=== PATIENT | male | born 1955 | race Caucasian/White ===

== ENCOUNTER → 2022-05-30 11:36 | Outpatient (BNVA) | payer MEDICARE, OTHER, SELFPAY | PROVIDERS: PCP Family Medicine; Visit Provider Psychiatry & Neurology Psychiatry | DX: F34.1 Dysthymic disorder (principal); F98.8 Other specified behavioral and emotional disorders with onset usually occurring in childhood and adolescence; I10 Essential (primary) hypertension | CPT/HCPCS: 99212 ==

== ENCOUNTER → 2022-08-28 15:30 | Outpatient (BNVA) | payer MEDICARE, OTHER, SELFPAY | PROVIDERS: PCP Family Medicine; Visit Provider Psychiatry & Neurology Psychiatry | DX: F34.1 Dysthymic disorder (principal); F98.8 Other specified behavioral and emotional disorders with onset usually occurring in childhood and adolescence; I10 Essential (primary) hypertension | CPT/HCPCS: 99212 ==

== ENCOUNTER 2022-12-13 13:18 | Outpatient (AMB) | payer MEDICARE, OTHER, SELFPAY ==
--- NOTE | 2022-12-13 14:10 | MHC.OFFVISPS ---
Intake Intake Visit Reasons: depression Allergies No Known Allergies Allergy (Verified 05/30/22 11:58) Medication List - Last Reconciled 12/13/22 by Gwyn Mane MD atenolol 25 mg PO BID dextroamphetamine sulfate 5 mg PO TID duloxetine 30 mg PO DAILY glyburide 2.5 mg PO QAM lisinopril 40 mg PO DAILY metformin 1,000 mg PO DIRECTED simvastatin 40 mg PO QPM HPI- Psychiatric Chief Complaint: depression HPI Narrative: Generally stable on current regimen chronic [place] dysphoria tendency to ruminate with some degree of anxiety duloxitine dexedrine has been having some difficulties emotionally PHQ-9 minimal does tend to chronically worry Past Psychiatric History: Pt with hx of ADD and dysthymia has failed multiple antidep trials feels best on dexedrine and duloxitine Mental Status Exam Mental Status Exam Narrative: Mental Status Exam Narrative: Appearance: Casually dressed Behavior: Cooperative appropriate psychomotor: Within normal limits Speech: Normal volume and prosody Thought proccess logical and goal-directed Thought content: Future oriented some worries Mood: Euthymic Affect: Appropriate to mood some anxiety SI:denies HI:denies VH/AH:none Delusions: None Insight/judgment: Good insight and judgment Memory/cog: Intact Assessment and Plan Assessment & Plan (1) Dysthymia: Status: Acute Code(s): F34.1 - Dysthymic disorder (2) ADD (attention deficit disorder) without hyperactivity: Status: Acute Code(s): F98.8 - Other specified behavioral and emotional disorders with onset usually occurring in childhood and adolescence Plan Patient generally stable continue present regimen has some limitations of life satisfaction had are chronic but generally content Medications: Refilled duloxetine 30 mg PO DAILY 30 caps 2RF dextroamphetamine sulfate Partial Fill upon patient request. 5 mg PO TID 90 tabs 0RF Counseling and coordination of Care Details-Self Mgmt counseling: Issues related to some degree of life dissatisfaction Details: I spent [30] minutes reviewing the record, seeing the patient and documenting in the medical record. Counseling provided to the patient/caregiver as outlined below. Addressed patient/caregiver concerns regarding current medication regime including effective adherence. Addressed patient/caregiver concerns regarding diagnosis and prognosis including accuracy of diagnosis, prognosis over time, impact of diagnosis. Addressed patient/caregiver concerns regarding impact of recent stressors. [facility] Medical History (Updated 05/30/22 @ 12:16 by Gwyn Mane MD) ADD (attention deficit disorder) without hyperactivity Dysthymia Hypercholesteremia Hypertension Social History: pt x 2 1 b 2 girls retired college grad 2 sibling 1 b pgm [facility] nephew add Substance History: na Trauma History: na Coding Level of Care Code Est Pt Level 4 (01619) Diagnoses Dysthymia F34.1 ADD (attention deficit disorder) without hyperactivity F98.8
== END 2022-12-13 17:31 | disposition home or self-care (01) ==
LOC: HO.HOP 13:18
PROVIDERS: PCP Family Medicine; Visit Provider Psychiatry & Neurology Psychiatry
DX: F34.1 Dysthymic disorder (principal); F98.8 Other specified behavioral and emotional disorders with onset usually occurring in childhood and adolescence
CPT/HCPCS: 99214

== ENCOUNTER → 2022-12-13 13:18 | Outpatient (BNVA) | payer MEDICARE, OTHER, SELFPAY | PROVIDERS: PCP Family Medicine; Visit Provider Psychiatry & Neurology Psychiatry | DX: F34.1 Dysthymic disorder (principal); F98.8 Other specified behavioral and emotional disorders with onset usually occurring in childhood and adolescence | CPT/HCPCS: 99212 ==

== ENCOUNTER 2023-04-10 15:06 | Outpatient (AMB) | payer MEDICARE, OTHER, SELFPAY ==
--- NOTE | 2023-04-10 15:21 | MHC.OFFVISPS ---
Intake Intake Visit Reasons: Depression Allergies No Known Allergies Allergy (Verified 05/30/22 11:58) HPI- Psychiatric Chief Complaint: Depression HPI Narrative: Pt is a 67 yo male hx of depression ADD having some difficulties with situation with his daughter wants to be part of grandchildrens life remains on cymbalta c/o mild memory difficulty at times sleep ok no medical changes Past Psychiatric History: Pt with hx of ADD and dysthymia has failed multiple antidep trials feels best on dexedrine and duloxitine Mental Status Exam Mental Status Exam Narrative: Mental Status Exam Narrative: Appearance: Casually dressed Behavior: Cooperative appropriate psychomotor: Within normal limits Speech: Normal volume and prosody Thought proccess logical and goal-directed Thought content: Future oriented some worries Mood: Euthymic Affect: Appropriate to mood some anxiety SI:denies HI:denies VH/AH:none Delusions: None Insight/judgment: Good insight and judgment Memory/cog: Intact Assessment and Plan Assessment & Plan (1) Dysthymia: Status: Acute Code(s): F34.1 - Dysthymic disorder (2) Word finding difficulty: Status: Acute Code(s): R47.89 - Other speech disturbances (3) ADD (attention deficit disorder) without hyperactivity: Status: Acute Code(s): F98.8 - Other specified behavioral and emotional disorders with onset usually occurring in childhood and adolescence Plan Is continue plan of care some degree of chronic apathy check testosterone B12 folate TSH otherwise continue plan of care Medications: Refilled dextroamphetamine sulfate Partial Fill upon patient request. 5 mg PO TID 90 tabs 0RF Orders: Orders Vitamin B12 and Folate 04/10/23 F34.1 - Dysthymic disorder, R53.83 - Other fatigue, R47.89 - Other speech disturbances Testosterone, Free/Total 04/10/23 F34.1 - Dysthymic disorder, R53.83 - Other fatigue, R47.89 - Other speech disturbances TSH reflex Free T4 04/10/23 F34.1 - Dysthymic disorder, R53.83 - Other fatigue, R47.89 - Other speech disturbances Counseling and coordination of Care Pt. Self Management counseling: Behavior activation Diagnosis and Prognosis Counseling: Accuracy of diagnosis, Impact of diagnosis on life functions and Adequacy of current interventions Details: I spent [34] minutes reviewing the record, seeing the patient and documenting in the medical record. Counseling provided to the patient/caregiver as outlined below. Addressed patient/caregiver concerns regarding current medication regime including effective adherence. Addressed patient/caregiver concerns regarding diagnosis and prognosis including accuracy of diagnosis, prognosis over time, impact of diagnosis. Addressed patient/caregiver concerns regarding impact of recent stressors. [facility] Medical History (Updated 04/10/23 @ 15:44 by Gwyn Mane MD) Dysthymia ADD (attention deficit disorder) without hyperactivity Hypercholesteremia Hypertension Social History: pt x 2 1 b 2 girls retired college grad 2 sibling 1 b pgm [facility] nephew add Substance History: na Trauma History: na Coding Level of Care Code Est Pt Level 4 (88048) Diagnoses Dysthymia F34.1 Word finding difficulty R47.89 ADD (attention deficit disorder) without hyperactivity F98.8
== END 2023-04-10 16:24 | disposition home or self-care (01) ==
LOC: HO.HOP 15:06
PROVIDERS: PCP Family Medicine; Visit Provider Psychiatry & Neurology Psychiatry
DX: F34.1 Dysthymic disorder (principal); R47.89 Other speech disturbances; F98.8 Other specified behavioral and emotional disorders with onset usually occurring in childhood and adolescence
CPT/HCPCS: 99214

== ENCOUNTER → 2023-04-10 15:06 | Outpatient (BNVA) | payer MEDICARE, OTHER, SELFPAY | PROVIDERS: PCP Family Medicine; Visit Provider Psychiatry & Neurology Psychiatry | DX: F34.1 Dysthymic disorder (principal); F98.8 Other specified behavioral and emotional disorders with onset usually occurring in childhood and adolescence; R47.89 Other speech disturbances | CPT/HCPCS: 99212 ==

== ENCOUNTER 2023-07-18 12:38 | Outpatient (AMB) | payer MEDICARE, OTHER, SELFPAY ==
--- NOTE | 2023-07-18 12:47 | MHC.OFFVISPS ---
Intake Intake Visit Reasons: depression Allergies No Known Allergies Allergy (Verified 05/30/22 11:58) HPI- Psychiatric Chief Complaint: depression HPI Narrative: Pt with some periods of low energy discussed use of light box c/o some occ word finding problems names not narrative memory pt generally doing well on low dose cymbalta dexedrine Past Psychiatric History: Pt with hx of ADD and dysthymia has failed multiple antidep trials feels best on dexedrine and duloxitine Mental Status Exam Mental Status Exam Narrative: Mental Status Exam Narrative: Appearance: Casually dressed Behavior: Cooperative appropriate psychomotor: Within normal limits Speech: Normal volume and prosody Thought proccess logical and goal-directed Thought content: Future oriented some worries Mood: Euthymic Affect: Appropriate to mood some anxiety SI:denies HI:denies VH/AH:none Delusions: None Insight/judgment: Good insight and judgment Memory/cog: alert basic memory intact Assessment and Plan Assessment & Plan (1) ADD (attention deficit disorder) without hyperactivity: Status: Acute Code(s): F98.8 - Other specified behavioral and emotional disorders with onset usually occurring in childhood and adolescence (2) Hypertension: Status: Acute Code(s): I10 - Essential (primary) hypertension (3) Dysthymia: Status: Acute Code(s): F34.1 - Dysthymic disorder (4) Word finding difficulty: Status: Acute Code(s): R47.89 - Other speech disturbances Plan pt generally stable no clear atypical cognitive issues discussed cognitive brain health discussed different strategies possible labs need to have well controlled blood sugar htn lipids need for regular exercise pt offered labs including b12 folate tsh rpr lyme pt states he sees pcp consider above next visit Counseling and coordination of Care Pt. Self Management counseling: Med illness tx adherence Medication management counseling: Effectiveness and Side effects Details: I spent [30] minutes reviewing the record, seeing the patient and documenting in the medical record. Counseling provided to the patient/caregiver as outlined below. Addressed patient/caregiver concerns regarding current medication regime including effective adherence. Addressed patient/caregiver concerns regarding diagnosis and prognosis including accuracy of diagnosis, prognosis over time, impact of diagnosis. Addressed patient/caregiver concerns regarding impact of recent stressors. [facility] Medical History (Updated 04/10/23 @ 15:44 by Gwyn Mane MD) Dysthymia ADD (attention deficit disorder) without hyperactivity Hypercholesteremia Hypertension Social History: pt x 2 1 b 2 girls retired college grad 2 sibling 1 b [facility] nephew add Substance History: na Trauma History: na Coding Level of Care Code Est Pt Level 4 (40706) Diagnoses ADD (attention deficit disorder) without hyperactivity F98.8 Hypertension I10 Dysthymia F34.1 Word finding difficulty R47.89
== END 2023-07-18 13:05 | disposition home or self-care (01) ==
LOC: HO.HOP 12:38
PROVIDERS: PCP Family Medicine; Visit Provider Psychiatry & Neurology Psychiatry
DX: F98.8 Other specified behavioral and emotional disorders with onset usually occurring in childhood and adolescence (principal); I10 Essential (primary) hypertension; F34.1 Dysthymic disorder; R47.89 Other speech disturbances
CPT/HCPCS: 99214

== ENCOUNTER → 2023-07-18 12:38 | Outpatient (BNVA) | payer MEDICARE, OTHER, SELFPAY | PROVIDERS: PCP Family Medicine; Visit Provider Psychiatry & Neurology Psychiatry | DX: F98.8 Other specified behavioral and emotional disorders with onset usually occurring in childhood and adolescence (principal); F34.1 Dysthymic disorder; I10 Essential (primary) hypertension; R47.89 Other speech disturbances | CPT/HCPCS: 99212 ==

== ENCOUNTER 2023-11-16 12:30 | Outpatient (AMB) | payer MEDICARE, OTHER, SELFPAY ==
--- NOTE | 2023-11-16 12:48 | A.OFFPSYCH_ITS ---
Intake Intake Visit Reasons: depression Allergies No Known Allergies Allergy (Verified 05/30/22 11:58) HPI- Psychiatric Chief Complaint: depression HPI Narrative: Patient seen psychiatric follow-up patient without new medical difficulties. Patient with chronic minimal periods of dysthymia can be a motivational continues to find Dexedrine up to 5 t.i.d. helpful without palpitations increased anxiety or appetite difficulties. Continues on duloxetine which has been helpful in dealing with chronic anxiety and dysphoria . PHQ-9 reviewed Past Psychiatric History: Pt with hx of ADD and dysthymia has failed multiple antidep trials feels best on dexedrine and duloxitine Mental Status Exam Mental Status Exam Narrative: Mental Status Exam Narrative: Appearance: Casually dressed Behavior: Cooperative appropriate psychomotor: Within normal limits Speech: Normal volume and prosody Thought proccess logical and goal-directed Thought content: Future oriented some worries Mood: Euthymic Affect: Appropriate to mood some anxiety SI:denies HI:denies VH/AH:none Delusions: None Insight/judgment: Good insight and judgment Memory/cog: alert basic memory intact Assessment and Plan Assessment & Plan (1) ADD (attention deficit disorder) without hyperactivity: Status: Acute Code(s): F98.8 - Other specified behavioral and emotional disorders with onset usually occurring in childhood and adolescence (2) Generalized anxiety disorder: Status: Acute Code(s): F41.1 - Generalized anxiety disorder (3) Dysthymia: Status: Acute Code(s): F34.1 - Dysthymic disorder Plan cont plan of care encourage exercise sleep habits no change indicated this time does tend to ruminate Medications: Refilled dextroamphetamine sulfate Partial Fill upon patient request. 5 mg PO TID 90 tabs 0RF duloxetine 30 mg PO DAILY 30 caps 4RF dextroamphetamine sulfate Partial Fill upon patient request. 5 mg PO TID 90 tabs 0RF Counseling and coordination of Care Pt. Self Management counseling: Breathing, Exercise and Behavior activation Details-Self Mgmt counseling: Issues related to family concerns Medication management counseling: Effectiveness Diagnosis and Prognosis Counseling: Adequacy of current interventions Details: I spent [38] minutes reviewing the record, seeing the patient and documenting in the medical record. Counseling provided to the patient/caregiver as outlined below. Addressed patient/caregiver concerns regarding current medication regime including effective adherence. Addressed patient/caregiver concerns regarding diagnosis and prognosis including accuracy of diagnosis, prognosis over time, impact of diagnosis. Addressed patient/caregiver concerns regarding impact of recent stressors. [facility] Medical History (Updated 11/19/23 @ 09:39 by Gwyn Mane MD) Generalized anxiety disorder Dysthymia ADD (attention deficit disorder) without hyperactivity Hypercholesteremia Hypertension Social History: pt x 2 1 b 2 girls retired college grad 2 sibling 1 b 1 son in residency pgm [facility] nephew add Substance History: na Trauma History: na Coding Level of Care Code Est Pt Level 3 (61239) Therapy 30m w/E&M (68181) Diagnoses ADD (attention deficit disorder) without hyperactivity F98.8 Generalized anxiety disorder F41.1 Dysthymia F34.1
== END 2023-11-16 15:37 | disposition home or self-care (01) ==
LOC: HO.HOP 12:30
PROVIDERS: PCP Family Medicine; Visit Provider Psychiatry & Neurology Psychiatry
DX: F98.8 Other specified behavioral and emotional disorders with onset usually occurring in childhood and adolescence (principal); F41.1 Generalized anxiety disorder; F34.1 Dysthymic disorder
CPT/HCPCS: 90833; 99213

== ENCOUNTER → 2023-11-16 12:30 | Outpatient (BNVA) | payer MEDICARE, OTHER, SELFPAY | PROVIDERS: PCP Family Medicine; Visit Provider Psychiatry & Neurology Psychiatry | DX: F98.8 Other specified behavioral and emotional disorders with onset usually occurring in childhood and adolescence (principal); F41.1 Generalized anxiety disorder; F34.1 Dysthymic disorder; Z79.899 Other long term (current) drug therapy | CPT/HCPCS: 99212 ==

== ENCOUNTER 2024-02-26 14:01 | Outpatient (AMB) | payer MEDICARE, OTHER, SELFPAY ==
--- NOTE | 2024-02-26 14:14 | A.OFFPSYCH_ITS ---
Intake Intake Visit Reasons: depression Allergies No Known Allergies Allergy (Verified 05/30/22 11:58) Medication List - Last Reconciled 02/26/24 by Gwyn Mane MD atenolol 25 mg PO BID dextroamphetamine sulfate 5 mg PO TID duloxetine 30 mg PO DAILY glyburide 2.5 mg PO QAM lisinopril 40 mg PO DAILY metformin 1,000 mg PO DIRECTED simvastatin 40 mg PO QPM HPI- Psychiatric Chief Complaint: depression HPI Narrative: Pt generally doing ok some apathy amotivational at times no c/o side effects patient generally doing okay low-dose Cymbalta low-dose Dexedrine no new medical problems patient's son involved in medicine. Past Psychiatric History: Pt with hx of ADD and dysthymia has failed multiple antidep trials feels best on dexedrine and duloxitine Mental Status Exam Mental Status Exam Narrative: Mental Status Exam Narrative: Appearance: Casually dressed Behavior: Cooperative appropriate psychomotor: Within normal limits Speech: Normal volume and prosody Thought proccess logical and goal-directed Thought content: Future oriented some worries Mood: Euthymic Affect: Appropriate to mood some anxiety SI:denies HI:denies VH/AH:none Delusions: None Insight/judgment: Good insight and judgment Memory/cog: alert basic memory intact Assessment and Plan Assessment & Plan (1) Generalized anxiety disorder: Status: Acute Code(s): F41.1 - Generalized anxiety disorder (2) ADD (attention deficit disorder) without hyperactivity: Status: Acute Code(s): F98.8 - Other specified behavioral and emotional disorders with onset usually occurring in childhood and adolescence (3) Dysthymia: Status: Acute Code(s): F34.1 - Dysthymic disorder Plan cont plan of care encourage exercise sleep habits no change indicated this time does tend to ruminate Medications: Refilled duloxetine 30 mg PO DAILY 90 caps 1RF Orders: Orders ECG 12 lead EKG 02/26/24 F98.8 - Other specified behavioral and emotional disorders with onset usually occurring in childhood and adolescence, I10 - Essential (primary) hypertension Counseling and coordination of Care Pt. Self Management counseling: Breathing, Exercise and Behavior activation Details-Self Mgmt counseling: Issues related to family concerns Medication management counseling: Effectiveness Diagnosis and Prognosis Counseling: Adequacy of current interventions Details: I spent [30] minutes reviewing the record, seeing the patient and documenting in the medical record. Counseling provided to the patient/caregiver as outlined below. Addressed patient/caregiver concerns regarding current medication regime including effective adherence. Addressed patient/caregiver concerns regarding diagnosis and prognosis including accuracy of diagnosis, prognosis over time, impact of diagnosis. Addressed patient/caregiver concerns regarding impact of recent stressors. [facility] Medical History (Updated 11/19/23 @ 09:39 by Gwyn Mane MD) Generalized anxiety disorder Dysthymia ADD (attention deficit disorder) without hyperactivity Hypercholesteremia Hypertension Social History: pt x 2 1 b 2 girls retired college grad 2 sibling 1 b 1 son in residency pgm [facility] nephew add Substance History: na Trauma History: na Coding Level of Care Code Est Pt Level 4 (12547) Diagnoses Generalized anxiety disorder F41.1 ADD (attention deficit disorder) without hyperactivity F98.8 Dysthymia F34.1
== END 2024-02-26 15:24 | disposition home or self-care (01) ==
PROVIDERS: PCP Family Medicine; Visit Provider Psychiatry & Neurology Psychiatry
DX: F41.1 Generalized anxiety disorder (principal); F98.8 Other specified behavioral and emotional disorders with onset usually occurring in childhood and adolescence; F34.1 Dysthymic disorder
CPT/HCPCS: 99214

== ENCOUNTER → 2024-02-26 14:01 | Outpatient (REF) | payer MEDICARE, OTHER, SELFPAY ==
--- NOTE | 2024-02-26 15:18 | ECG_ITS ---
Test Reason : behavior and emotional disorders Blood Pressure : / mmHG Vent. Rate : 071 BPM Atrial Rate : 071 BPM P-R Int : 154 ms QRS Dur : 092 ms QT Int : 390 ms P-R-T Axes : 057 -22 -13 degrees QTc Int : 423 ms Normal sinus rhythm Normal ECG When compared with ECG of 14-SEP-2004 06:40, No significant change was found Referred By: Gwyn Mane Electronically Signed By:ROSANGELA MUJICA
== END ==
LOC: HO.CARD 14:01
PROVIDERS: PCP Family Medicine; Visit Provider Psychiatry & Neurology Psychiatry
DX: F98.8 Other specified behavioral and emotional disorders with onset usually occurring in childhood and adolescence (principal); I10 Essential (primary) hypertension
CPT/HCPCS: 93005; 99212

== ENCOUNTER 2024-06-03 10:30 | Outpatient (AMB) | payer MEDICARE, OTHER, SELFPAY ==
--- OUTSIDE RECORDS SUMMARY | 2024-06-03 10:36 | XMS_ITS ---
Author Organization [facility] Address [address] [place] [address] Care Team Providers Care Outreach Manager Name Role Phone Tony Roberts MD Primary Care Provider Unavailab Pankaj Yin Unavailable [phone] Allergies No Known Allergies REASON FOR VISIT At Risk Footcare, Painful Nail(s) aggravated by shoes and causing difficulty standing/walking., Open sore - Toe, Toe Irritation Medications Medication SIG (Take, Route, Frequency, Duration) Notes Start Date End Date Status Atenolol 25 MG Oral for 90 Days Active Cephalexin 500 MG Oral for 7 Days Not-Taking Lisinopril 40 MG TAKE 1 TABLET BY MARII TH EVERY DAY DIRECTED Oral for 90 Days Active Simvastatin 40 MG TAKE 1 TABLET BY MARII TH EVERY EVENING Oral for 90 Days Active glyBURIDE 2.5 MG TAKE 1 TABLET BY MARII TH EVERY MORNING Oral for 90 Days Active DULoxetine HCl 30 MG TAKE 1 CAPSULE BY MOUTH DAILY Oral for 30 Days Active metFORMIN HCl 500 MG Oral for 90 Days Active Zolpidem Tartrate 10 MG TAKE 1 TABLET BY MOUTH AT BEDTIME NEEDED Oral for 30 Days PRN Active Dextroamphetamine Sulfate 5 MG TAKE 1 TABLET BY MOUTH THREE TIMES DAILY Oral for 30 Days Active Extra Depth Orthopedic Shoes (1 Pair) with Customized Heat Molded Multidensity Innersoles (3 Pair) as directed Dx: NIDDM (E11.9), Hammertoe Foot Deformity (M20.41,M20.42), Preulcerative Skin Lesion(s) (L85.1) 02/05/2024 Active Social History Tobacco Use: Social History Observation Description Date Details (start date - stop date) Never Smoker NA - NA Tobacco Use/Smoking Question Answer Notes Are you a: nonsmoker Additional Findings: Tobacco Non-User Current no n-smoker Tobacco use other than smoking: Question Answer Notes Are you an other tobacco user? No Problems Problem Type SNOMED Code ICD Code Onset Dates Problem Status W/U Status Risk Notes Problem Acquired hammer toe of right foot (1626206167183 105) Other hammer toe(s) (acquired), right foot (M20.41) Active confirmed Problem Acquired hammer toe of left foot (6531056552534 103) Other hammer toe(s) (acquired), left foot (M20.42) Active confirmed Vital Signs Height 5ft9in in 02/05/2024 Weight 190 lbs 02/05/2024 BMI 28.06 kg/m2 02/05/2024 Blood pressure systolic 140 mm Hg 02/05/20 24 Blood pressure diastolic 80 mm Hg 024 Procedures Procedure Date Ordered Date Performed Result Body Sit e 85863-FZJQNRN NAIL, 6 OR MORE 02/05/2024 N/A 22542- Debride <25 sq cm 02/05/2024 N/A Encounters Encounter Location Date Provider Diagnosis [facility] [place] [address] [place] [address] 02/05/2024 Pankaj Mary Pain in right toe(s) M79.674 ; Tinea unguium B35.1 ; Pain in left toe(s) M79.675 ; Type 2 diabetes mellitus without complication E11.9 ; Other hammer toe(s) (acquired), right foot M20.41 ; Other hammer toe(s) (acquired), left foot M20.42 and Skin ulcer of toe of right foot, limited to breakdown of skin L97.511 Assessments Encounter Date Diagnosis (ICD Code) Assessment Notes Treatment Notes Treatment Clinical Notes Section Notes 02/05/2024 Pain in right toe(s) (ICD-10 - M79.674) 02/05/2024 Tinea unguium (ICD-10 - B35.1) 02/05/2024 Pain in left toe(s) (ICD-10 - M79.675) 02/05/2024 Type 2 diabetes mellitus without complication (ICD-10 - E11.9) 02/05/2024 Other hammer toe(s) (acquired), right foot (ICD-10 - M20.41) Patient Educated with: DIABETIC FOOT CARE INSTRUCTIONS.p df (DIABETIC FOOT CARE INSTRUCTIONS.p df) 02/05/2024 Other hammer toe(s) (acquired), left foot (ICD-10 - M20.42) 02/05/2024 Skin ulcer of toe of right foot, limited to breakdown of skin (ICD-10 - L97.511) Patient Educated with: WOUND CARE INSTRUCTIONS.p df (WOUND CARE INSTRUCTIONS.p df) 02/05/2024 Other Plan Of Treatment Medication Medication Name Sig Start Date Stop Date Notes Extra Depth Orthopedic Shoes (1 Pair) with Customized Heat Molded Multidensity Innersoles (3 Pair) as directed Dx: NIDDM (E11.9), Hammertoe Foot Deformity (M20.41,M20.42), Preulcerative Skin Lesion(s) (L85.1) 02/05/2024 Treatment Notes Assessment Notes Other hammer toe(s) (acquired), right fo ot Patient Educated with: DIABETIC FOOT CARE INSTRUCTIONS.pdf (DIABETIC FOOT CARE INSTRUCTIONS.pdf) Skin ulcer of toe of right f oot, limited to breakdown of skin Patient Educated with: WOUND CARE INSTRUCTIONS.pdf (WOUND CARE INSTRUCTIONS.pdf) Pending Test Test Name Order Date [id number] NAIL, 6 OR MORE 02/05/2024 08176- Debride <25 sq cm 02/05/2024 Next Appt Details Follow Up: prn, Reason: Provider Name:Pankaj Mary , 08/01/2024 12:00:00 PM, [address] [place] [address], [phone], Procedure Notes * Category Sub-Category Detail Notes Debride Nail 6-10 Nail debridement Performance o f this nail treatment by a nonprofessional would put this patients foot and overall health at risk. Therefore, nail debridement was performed extensively to reduce/remove overall nail length, girth, thickness, subungual debris, and necrotic tissue, by manual and/or electrical means through the use of a nail nipper and/or dremel-type tankage grinder, to a more viable healthy nail plate or bed tissue 6-10. Silver nitrate used for any petechial bleeding as necessary. Definitive antifungal treatment options have been reviewed and discussed with the patient. The patient chooses, no pharmaceutical tx - [address]56 Debride skin< 25 sq cm Open wound Physician of record performed open wound selective debridement of first 25 sq cm or less, of devitilized necrotic/nonviable soft tissue, fibrin, and exudate extending from the epidermis through the dermis, utilizing sharp dissection with sterile 15 blade, and/or tissue nippers. Sterile antibiotic dressing applied, ANESTHESIA- was accomplished TOPICALLY with Lidocaine Hydrochloride Jelly 2 percent. Hemostasis was achieved through direct pressure. Post debridement measurements: 11mm x 4mm x 2mm. Character of the wound post debridement is stable (62690) Progress Notes * Kevin HILL KDOB:[birth year] (68 yo M)Acc No.[id number]:02/05/2024 Progress Notes Patient:?Kevin Hill Provider:?Pankaj Mary DPM :1955???Age:68 Y???Sex:Male Marcial e:02/05/2024 Address:[address] [place] [address] Pcp:Tony Roberts MD Subjective: * Chief Complaints: * ???At Risk FootcarePainful N ail(s) aggravated by shoes and causing difficulty standing/walking.Open sore - ToeToe Irritation * HPI: ???At Risk footcare:?Pt States Last PCP Visit:?Date?01/28/2024 ???Skin problems:?Nature:?Open sore.?Treatments:?Topical abx, soaks.?Toe pain:?Location:?B/L feet.?Duration:?several years.?Course:?worse.?Aggravated by:?shoes, any pressure.?Treatments:?change in shoes.? * ROS:?General/Constitutional:?Nausea?denies.?Vomiting?denies.?Hunger Thirst?denies.?Loss appetite?denies.?Chills?denies.?Fatigue?denies.?Fever?denies.?Night Sweats?denies.?Unexplained weight loss?denies.?Unexplained weight gain?denies.?HEENTM:?Dentures?denies.?Dizziness?denies.?Glasses/contacts?admits.?Retinopathy?de nies.?Blurred/double vision?denies.?TMJ?denies.?Discharge/drainage?denies.?Implants?denies.?Sore throat?denies.?Dental implants?denies.?Hard of hearing ?admits.?Difficulty chewing/swallowing/speaking?denies.?Nose bleeds?denies.?Sore mouth?denies.?Respiratory:?On Oxygen?denies.?Pneumonia/pleurisy?denies.?Bronchitis?denies.?Emphysema?denies.?C oughing?denies.?Cough blood?denies.?Shortness of breath?denies.?Wheezing?denies.?Cardiovascular:?Pacemaker?denies.?MVP?denies.?WPW?denies.?CHF?denies.?Heart attack?denies.?Septal defect?denies.?Rapid beat?denies.?Chest pain ?denies.?Atrial Fib.?denies.?Murmur/Palpitations?denies.?Gastrointestinal:?Hemorrhoids?denies.?Stomach/Abdominal pain?denies.?Dark blood stool?denies.?Irritable bowel ?denies.?Constipation?denies.?Diarrhea?denies.?Hematology:?Swelling?denies.?Clots?denies.?Varicose Veins?denies.?Bruising?denies.?Bleeding problem?denies.?Genitourinary:?Blood urine?denies.?Frequent/Painfu/urination/bladder control?denies.?Kidney stones?denies.?Infection (UTI)?denies.?Nephropathy?denies.?sex trans dis (STD)?denies.?Prostate?denies.?Musculoskeletal:?Hammertoes?admits.?Bunions?denies.?Back Pain?denies.?Muscle Cramps/ Resting?denies.?Muscle cramps / walking?denies.?Generalized aches and pains?denies.?Weakness?denies.?Integ.:?Donaldson?denies.?Scars?denies.?Corns/calluses?admits.?Ingrown nails?admits.?Painful nails?admits.?Open Sores?denies.?Rashes?denies.?Neurologic:?Difficulty sleeping?denies.?Brain disorder?denies.?Numbness?denies.?Balance trouble?denies.?Confusion?denies.?Fainting/blackouts?denies.?Tingling?denies.?Tr emors?denies.? * Medical History:? * Surgical History:?Gall bladd er 10/2004tonsillectomy 1960 * Hospitalization/Major Diagno stic Procedure:?Denies Past Hospitalization * Family History:?No Family Hi story documented..? * Social History:?Tobacco Use:?Tobacco Use/Smoking?Are you a:?nonsmoker ?Additional Findings: Tobacco Non-User?Current non-smoker ?Tobacco use other than smoking?Are you an other tobacco user??No ???Miscellaneous:?Caffeine: yes, frequency:, 3-5 cups per day. ?Children: yes. ?Exercise: yes, Walking, gym,, weightlifting, kayaking. ?Marital status: . ?Occupation: Retired, power plant. * Medications:?TakingZolpidem Tartrate 10 MG Tablet TAKE 1 TABLET BY MOUTH AT BEDTIME NEEDED Oral , Notes: PRNDextroamphetamine Sulfate 5 MG Tablet TAKE 1 TABLET BY MOUTH THREE TIMES DAILY Oral DULoxetine HCl 30 MG Capsule Delayed Release Particles TAKE 1 CAPSULE BY MOUTH DAILY Oral metFORMIN HCl 500 MG Tablet Oral glyBURIDE 2.5 MG Tablet TAKE 1 TABLET BY MOUTH EVERY MORNING Oral Lisinopril 40 MG Tablet TAKE 1 TABLET BY MOUTH EVERY DAY DIRECTED Oral Simvastatin 40 MG Tablet TAKE 1 TABLET BY MOUTH EVERY EVENING Oral Atenolol 25 MG Tablet Oral Taking Zolpidem Tartrate 10 MG Tablet TAKE 1 TABLET BY MOUTH AT BEDTIME NEEDED Oral , Notes: PRNTaking Dextroamphetamine Sulfate 5 MG Tablet TAKE 1 TABLET BY MOUTH THREE TIMES DAILY Oral Taking DULoxetine HCl 30 MG Capsule Delayed Release Particles TAKE 1 CAPSULE BY MOUTH DAILY Oral Taking metFORMIN HCl 500 MG Tablet Oral Taking glyBURIDE 2.5 MG Tablet TAKE 1 TABLET BY MOUTH EVERY MORNING Oral Taking Lisinopril 40 MG Tablet TAKE 1 TABLET BY MOUTH EVERY DAY DIRECTED Oral Taking Simvastatin 40 MG Tablet TAKE 1 TABLET BY MOUTH EVERY EVENING Oral Taking Atenolol 25 MG Tablet Oral Not-Taking/PRNCephalexin 500 MG Capsule Oral Medication List reviewed and reconciled with the patientNot-Taking/PRN Cephalexin 500 MG Capsule Oral Medication List reviewed and reconciled with the patient * Allergies:?N.K.D.A.yes[Aller gicandelario Verified] Objective: * Vitals:?Ht: 5ft9in, Wt:190, BMI:28.06, Shoe size: 10.5, BP:140/80 mm Hg, BS: not taken, Ht-cm: 175.26 cm, Wt-k.18 kg. * ???Past Orders: ???Lab:HEMOGLOBIN A1C (GLYCO HEMOGLOBIN) (Order Date - 11/19/2023) (Collection Date - 11/19/2023) ? Value Reference Range ?HEMOGLOBIN A1C % (HH) 7.0 * Examination: ???Nails: ?NAILS are:?Elongated, overgrown, dystrophic, lytic, greater than 3mm thick, discolored and friable with crumbly malodorous subungual debris, with pain on palpation , TA, T1, T3, T4, T5, T6, T8 , T9.?Dermatologic: ?SKIN FINDINGS:?Skin exam reveals Keratotic lesion(s) located at , Heel(s), B/L.?ULCER:? LOCATION, Dorsal, T5, SIZE, 10mm X 3mm X 1-2mm, BASE, granular to epithelialized, RIM, hyperkeratotic, UNDERMINING, absent, TRACKING, Partial to, Full thickness breakdown of skin, DRAINAGE, serosanguineous, mild, NECROTIC TISSUE, loosely-adherent, yellow slough, MALODOR, absent, CALOR, absent, ERYTHEMA, absent, PAIN ON PALPATION, mild.?Orthopedic: ?MUSCLE STRENGTH:?5/5 all groups in a symmetrical fashion, B/L.?FOOT MORPHOLOGY:?(-) Charcot collapse/destruction noted at MTJ.?DIGITAL DEFORMITIES:?Digital contracture, PIPJ, 2-5 B/L, incompl-reducible to push-up test, no over, nor underlapping,?there is?evidence of shoe producing skin irritation.?FOOTWEAR:?worn, non-supportive, shoe gear properties exacerbate patient's foot/toe deformity.?Vascular: ?DP PULSES:?2/4, B/L.?PT PULSES:?2/4, B/L.?CAPILLARY FILL TIME:?3 secs. per digit, B/L.?SKIN TEMPERTURE GRADIENT OF THE LOWER EXTERMITIES:?normal, warm to cool, proximal to distal, B/L, B/L.?HAIR GROWTH/TEXTURE/ELASTICITY/TURGOR:?normal, B/L.?PIGMENTATION:?normal, B/L.?EDEMA:?absent, B/L.?Neurological: ?SENSORY:?Neurological exam reveals intact sensorium, pain sensation normal, vibration sensation intact, pinprick sensation is normal in the lower extremities, 5.07 monofilament test performed at plantar aspects of 5 varied sites per foot shows sensation, normal, B/L, Pt denies, anesthesia, burning, paresthesia, tingling, B/L.?Ophthalmology Referral: ?DIABETES EYE EXAM?General Examination: ?GENERAL APPEARANCE:?Reveals a pleasant, alert, well nourished, well- developed, well hydrated individual, who demonstrates proper attention to hygiene/body habitus, and is in no acute distress, Pt serves as own historian for office visit today.?ORIENTED:?person, place, and time.?FOOT EXAM:?Footwear Evaluation? Assessment: * Assessment: 1.?Pain in right toe(s) - M7 9.674?2.?Tinea unguium - B35.1?3.?Pain in left toe(s) - M79.675?4.?Type 2 diabetes mellitus without complication - E11.9?5.?Other hammer toe(s) (acquired), right foot - M20.41, Chronic problem, Worse (4),Rx Management (4)?6.?Other hammer toe(s) (acquired), left foot - M20.42, Chronic problem, Worse (4),Rx Management (4)?7.?Skin ulcer of toe of right foot, limited to breakdown of skin - L97.511 (Primary)? Plan: * Treatment: 2.?Tinea unguium?Procedure: 69697-MLHFWJN NAIL, 6 OR MORE 3.?Other hammer toe(s) (acqu ired), right foot? Start Extra Depth Orthopedic Shoes (1 Pair) with Customized Heat Molded Multidensity Innersoles (3 Pair), as directed, Dx: NIDDM (E11.9), Hammertoe Foot Deformity (M20.41,M20.42), Preulcerative Skin Lesion(s) (L85.1), 1, Refills 0.?? Notes: Patient Educated with: DIABETIC FOOT CARE INSTRUCTIONS.pdf (DIABETIC FOOT CARE INSTRUCTIONS.pdf)?? * Procedures:?Debride Nail 6-10:?Nail debridement?Performance of this nail treatment by a nonprofessional would put this patients foot and overall health at risk. Therefore, nail debridement was performed extensively to reduce/remove overall nail length, girth, thickness, subungual debris, and necrotic tissue, by manual and/or electrical means through the use of a nail nipper and/or dremel-type tankage grinder, to a more viable healthy nail plate or bed tissue 6-10. Silver nitrate used for any petechial bleeding as necessary. Definitive antifungal treatment options have been reviewed and discussed with the patient. The patient chooses, no pharmaceutical tx - 79555.?Debride skin< 25 sq cm:?Open wound?Physician of record performed open wound selective debridement of first 25 sq cm or less, of devitilized necrotic/nonviable soft tissue, fibrin, and exudate extending from the epidermis through the dermis, utilizing sharp dissection with sterile 15 blade, and/or tissue nippers. Sterile antibiotic dressing applied, ANESTHESIA- was accomplished TOPICALLY with Lidocaine Hydrochloride Jelly 2 percent. Hemostasis was achieved through direct pressure. Post debridement measurements: 11mm x 4mm x 2mm. Character of the wound post debridement is stable (69813).? * Procedure Codes:?54551 DEBRI DE NAIL, 6 OR MORE, Modifiers: XS 89465 ACTIVE WOUND CARE/20 CM OR <, Modifiers: XS * Preventive Medicine:? ??Counseling:?Discussion:?-14: Office or other outpatient visit for the evaluation and management of an established patient, which required a medically appropriate history and/or examination and MODERATE level of DECISION MAKING for: 1 OR MORE CHRONIC PROBLEM(S) THATS WORSENING, 2 STABLE CHRONIC PROBLEMS, A NEWLY DIAGNOSED PROBLEM WITH UNCERTAIN PROGNOSIS, AN ACUTE COMPLICATED INJURY WITH MULTIPLE TREATMENT OPTIONS, OR AN ACUTE PROBLEM WITH ACCOMPANYING SYSTEMIC SYMPTOMS, THAT POSE(S) A MODERATE RISK OF MORBIDITY. THIS CONDITION MAY ALSO INCLUDE RX DRUG MANAGEMENT, OR A DECISON FOR MINOR SURGERY. The visit on the day of the encounter encompassed interpreting the data and educating the patient as to the nature of their condition, treatment options available according to their individual PMH, meds, allergies, and overall health/living conditions, as well as any potential risks or complications that may occur from a failure to adhere to, and participate in, the recommended course of therapy. The discussion included a complete verbal, and/or written explanation of the examination results, any x-rays taken, the proposed diagnosis, and outline of the treatment plan. A schedule for future care needs was also explained. The patient verbalized an understanding of the instructions at this time and agreed to be an active participant in their treatment. If the patient should think of any questions or concerns after the visit, I have encouraged the patient to call the office.?Digital Surgery:?Digital surgery was discussed with the patient, We elected to try conservative treatment at the present time, due to the patients medical history and increased asssociated post-operative risks.?Digital Treatment:?HT- I explained to the patient the possible etiologies of Hammertoes, including genetics/foot type/shoegear/activity level/exercise routine and the risks/benefits of all the different treatment options for their pain including: No treatment at all, Rest, Ice, New/supportive/wider/deeper Shoegear, Digital Padding/Strapping/Taping/Bracing/Gel protective sleeves, Foot/Ankle AFO Bracing, Stretching exercises, Deep Tissue Massage, Arch support/shoe inserts with splay metatarsal padding, and Custom orthoses. I insisted that any digital devices be removed daily and not worn overnight for safety. The patient is to carefully examine the toes daily for any skin irritation while using any splinting or padding device. The advantages and disadvantages of each option were discussed and the patients questions re: shoegear, padding, custom vs prefabricated inserts, activity level, and consistency in home treatment regimens for optimal success were answered to their verbally confirmed satisfaction.?Shoe Gear Counseling:?SHOE Rx - The patient was counseled in great detail on their muscoloskeletal foot and toe deformities which coincided with the dermatological presentations visualized on exam. We discussed how their deformities put the integrity of their feet at risk for potential pedal complications which makes the accomidative diabetic shoes and cutomizable inserts medically necessary. We discussed the different shoe and insert treatment types and options, as well as the important advantages for adhering to regularly wearing these accomidative devices daily. The patient was made aware of the fact that a failure to abide by these recommedations may be deleterious to their foot health as they are able to prevent many pedal complications such as skin irritation, skin ulceration, infection, and even loss of toe/foot/leg/or life. Time was also spent with the patient dispensing and discussing proper diabetic footcare techniques including daily skin moisturization, daily foot inspection for any interruption in skin integrity including open lesions, or sign of infection such as redness/malodor/drainage/swelling. Also discussed and recommended were procedures regarding daily shoe inspection for the presence of internal foreign bodies as well as any visualized irregular shoe or insert wear. Patient questions re: shoes, inserts, and self foot inspections were answered to their satisfaction as the patient verbally confirmed a full understanding of the above information. A Rx for Extra Depth Orthopedic Shoes with 3 pair of custom heat-molded inserts was dispensed.?Ulcer:?A detailed plan of care was reviewed with the patient. We emphasized the fact that the patient takes on an active participating role in the treatment process and emphasized to them that they are an included, valued, and important member of the wound healing team in order to reach an expedient successful outcome. The patient agreed to follow their medically recommended diet while increasing their protein intake if safely able to do so, maintain proper bodily hydaration, abide by weight-bearing restrictions at all times, quit all current smoking habits if any, and diligently follow any/all dressing change instructions. It was clearly made known to the patient that if they fail to do their part, they will likely extend their course of treatment as well as possibly increase their risk of adverse events including amputation. The patient was instructed on importance of proper wound care consisting of pressure reduction, and proper maintainance of a moist wound environment. The patient is to cleanse the wound with warm soapy water/peroxide/saline, or betadine BID based on product availability. The patient is to apply ( Neosporin, Polysporin, or Triple, ) Antibiotic to the wound and cover with a DSD as directed. The patient was instructed to change dressings according to orders, or PRN saturation, leaks. The patient was instructed to monitor and report any signs or symptoms of infection or any untoward reactions. Precautions Taken: Offloading/Pressure reduction via rest/ limited activity to essential to daily life only, shoe modification, accommodative padding, sharp debridement, and take/apply medication as directed. THE GOALS of wound debridement to remove devitilized tissue, decrease risk for infection, promote wound healing and prevent further complication were discussed/reviewed. Debridement frequency as indicated, Given recent successful results to treatment, The patient is to cont the local wound care as directed till completely healed.? ??Screening/Special Tests:?Fall Risk?Assessment:?Performed ?Plan of Care:?Documented ?Screening:?No falls in the past year ?FALLS: Screening for Future Fall Risk?Have you had any falls with injury in the past year??No * Follow Up:?prn * Images: * Sign off status: Completed true * Provider:?Pankaj Mary DPM Date:?2023 Generated for Julien matson/Svitlana/Mauriitting on:?06/03/2024 10:36 AM EST History and Physical Notes * HPI (History of Present Illness) Category Sub-Category Detail Notes Category Not es Toe pain Location: B/L feet Duration: several years Course: worse Aggravated by: shoes, any pressure Treatments: change in shoes Skin problems Nature: Open sore Treatments: Topical abx, soaks At Risk footcare Pt States Last PCP Visit: Date: 4 Examination Category Sub-Category Detail Notes Category Not es Neurological SENSORY: Neurological exa m reveals intact sensorium, pain sensation normal, vibration sensation intact, pinprick sensation is normal in the lower extremities, 5.07 monofilament test performed at plantar aspects of 5 varied sites per foot shows sensation, normal, B/L, Pt denies, anesthesia, burning, paresthesia, tingling, B/L Dermatologic SKIN FINDINGS: Skin exam reveal s Keratotic lesion(s) located at , Heel(s), B/L ULCER: LOCATION, Dorsal, T5 , SIZE, 10mm X 3mm X 1-2mm, BASE, granular to epithelialized, RIM, hyperkeratotic, UNDERMINING, absent, TRACKING, Partial to, Full thickness breakdown of skin, DRAINAGE, serosanguineous, mild, NECROTIC TISSUE, loosely-adherent, yellow slough, MALODOR, absent, CALOR, absent, ERYTHEMA, absent, PAIN ON PALPATION, mild Orthopedic FOOT MORPHOLOGY: (-) Charcot collapse/robert truction noted at MTJ FOOTWEAR: worn, non-supportive , shoe gear properties exacerbate patient's foot/toe deformity DIGITAL DEFORMITIES: Digital contracture , PIPJ, 2-5 B/L, incompl-reducible to push-up test, no over, nor underlapping, there is evidence of shoe producing skin irritation MUSCLE STRENGTH: 5/5 all groups in a symmetrical fashion, B/L General Examination GENERAL APPEARANCE: Reveals a pleasant, alert, well nourished, well-developed, well hydrated individual, who demonstrates proper attention to hygiene/body habitus, and is in no acute distress, Pt serves as own historian for office visit today FOOT EXAM: Lower Extremity Neurological Exa m performed:: Yes ORIENTED: person, place, and t jeff Footwear Evaluation Footwear Evaluation performe d:: Yes Ophthalmology Referral DIABETES EYE EXAM Diabetic Retinopa thy Screening:: No Vascular DP PULSES (B): 2/4, B/L PT PULSES (B): 2/4, B/L CAPILLARY FILL TIME: 3 secs. per digit, B/L TEMPERTURE GRADIENT (C): normal, warm to cool, proximal to distal, B/L, B/L TROPHIC CONDITION-TEXTURE/ELASTICITY/TURGOR/HAIR GROWTH (B): normal, B/L EDEMA (C): absent, B/L PIGMENTATION: normal, B/L Nails NAILS are: Elongated, overg rown, dystrophic, lytic, greater than 3mm thick, discolored and friable with crumbly malodorous subungual debris, with pain on palpation , TA, T1, T3, T4, T5, T6, T8 , T9
--- OUTSIDE RECORDS SUMMARY | 2024-06-03 10:36 | XMS_ITS ---
Continuity of Care Document (CCD) Created on: June 03, 2024 Kevin Hill External Reference #: [id number] : [id number] Sex: Male Author Organization [facility] Address [address] [facility] [address] [place] [address] Phone [phone] Social History Type Date Description Comments Sex Unknown Medical Devices Description No Information Available Encounters Description No Information Available Assessments Description No Information Available Plan of Treatment No Information Available Functional Status Description No Information Available Mental Status Description No Information Available Referrals Description No Information Available
--- OUTSIDE RECORDS SUMMARY | 2024-06-03 10:36 | XMS_ITS ---
Author Organization [facility] Address [address] [place] [address] Care Team Providers Care Founder And Chief Executive Officer Name Role Phone Tony Roberts MD Primary Care Provider Unavailab Pankaj Yin Unavailable [phone] Allergies No Known Allergies REASON FOR VISIT Skin problem(s), Possible Infection Medications Medication SIG (Take, Route, Frequency, Duration) Notes Start Date End Date Status Lisinopril 40 MG TAKE 1 TABLET BY MOUTH EVERY DAY DIRECTED Oral for 90 Days Active glyBURIDE 2.5 MG TAKE 1 TABLET BY MOUTH EVERY MORNING Oral for 90 Days Active metFORMIN HCl 500 MG Oral for 90 Days Active Atenolol 25 MG Oral for 90 Days Active Simvastatin 40 MG TAKE 1 TABLET BY MOUTH EVERY EVENING Oral for 90 Days Active DULoxetine HCl 30 MG TAKE 1 CAPSULE BY MOUTH DAILY Oral for 30 Days Active Dextroamphetamine Sulfate 5 MG TAKE 1 TABLET BY MOUTH THREE TIMES DAILY Oral for 30 Days Active Zolpidem Tartrate 10 MG TAKE 1 TABLET BY MOUTH AT BEDTIME NEEDED Oral for 30 Days PRN Active Cephalexin 500 MG Oral for 7 Days Not-Taking Social History Tobacco Use: Social History Observation Description Date Details (start date - stop date) Never Smoker NA - NA Tobacco Use/Smoking Question Answer Notes Are you a: nonsmoker Additional Findings: Tobacco Non-User Current no n-smoker Alcohol Screen Question Answer Notes Did you have a drink containing alcohol in the p ast year? Yes Points 0 Interpretation Negative Tobacco use other than smoking: Question Answer Notes Are you an other tobacco user? No Problems Problem Type SNOMED Code ICD Code Onset Dates Problem Status W/U Status Risk Notes Problem Type 2 diabetes mellitus without complication (920942316) Type 2 diabetes mellitus without complication (E11.9) Active confirmed Vital Signs Height 5 ft 9 in in 01/15/2024 Weight 190 lbs 01/15/2024 BMI 28.06 kg/m2 01/15/2024 Blood pressure systolic 140 mm Hg 01/15/20 24 Blood pressure diastolic 80 mm Hg 024 Procedures Procedure Date Ordered Date Performed Result Body Sit e 44189 I&D ABSCESS- SIMPLE,SINGLE 01/15/2024 N/A 14527- Removal of Foreign Body, Subcut 01/15/2024 N/A Encounters Encounter Location Date Provider Diagnosis [facility] [place] [address] [place] [address] 01/15/2024 Pankaj Mary Type 2 diabetes mellitus without complication E11.9 ; Puncture wound with foreign body, left foot, initial encounter S91.342A and Abscess of toe, right L02.611 Assessments Encounter Date Diagnosis (ICD Code) Assessment Notes Treatment Notes Treatment Clinical Notes Section Notes 01/15/2024 Type 2 diabetes mellitus without complication (ICD-10 - E11.9) 01/15/2024 Puncture wound with foreign body, left foot, initial encounter (ICD-10 - S91.342A) 01/15/2024 Abscess of toe, right (ICD-10 - L02.611) Patient Educated with: WOUND CARE INSTRUCTIONS.p df (WOUND CARE INSTRUCTIONS.p df) Plan Of Treatment Treatment Notes Assessment Notes Abscess of toe, right Patient Educated w ith: WOUND CARE INSTRUCTIONS.pdf (WOUND CARE INSTRUCTIONS.pdf) Pending Test Test Name Order Date 89921 I&D ABSCESS- SIMPLE,SINGLE 024 60864- Removal of Foreign Body, Subcut 0 01/15/2024 Next Appt Details Follow Up: 2-3 Weeks, Reason : Provider Name:Pankaj Mary , 08/01/2024 12:00:00 PM, [address] [place] [address], [id number], Procedure Notes * Category Sub-Category Detail Notes Foreign Body Removal Anesthesia was accompl ished TOPICALLY with Lidocaine Hydrochloride Jelly 2 percent Procedure The wound was explor ed and the foreign body ( glass ) was removed along with devitalized tissue, thru skin and subcutaneous tissue, using sterile 15 blade sharp dissection. A sterile antibiotic ointment dressing was applied and wound care instructions were discussed and dispensed, Patient tolerated procedure well (54379) DIABETES: Pt was advised as to the risk of delayed or nonhealing due to diabetes. Pt is to call the office with any questions, concerns, or complications, Location of foreign body As per exam Skin area prepped with al cohol or betadine , procedure performed under aseptic conditions I&D nail abscess Location Medial nail bor portia , T5 Procedure Performed incision a nd drainage of Single Nail Abscess with use of sterile nail nipper/316 blade. Approximately ( 0.1 ) cc purulent fluid material was drained. The infected devitalized soft tissue was curettaged to healthy bleeding bed. Any affected nail portion was removed to the eponychium . Any evidence of granuloma was also removed at this time. No underlying bone was visualized. There was minimal bleeding as hemostasis was achieved through the temporary use of either a digital tournaquet or the aforementioned local with epinephrine. An application of sterile Bacitracin dressing was performed. Local wound care instructions were discussed and dispensed. Recommended Tylenol or Motrin for pain/discomfort (13777), , DIABETES: Pt was advised as to the risk of delayed or nonhealing due to diabetes. Pt is to call the office with any questions, concerns, or complications Type Single, Abscess Anesthesia 3cc of 1 percent Lid ocaine Plain local anesthesic utilizing aseptic technique Progress Notes * Kevin HILL KDOB:[birth year] (68 yo M)Acc No.[id number]:01/15/2024 Progress Note Patient:?Kevin Hill Provider:?Pankaj Mary DPM :1955???Age:68 Y???Sex:Male Marcial e:01/15/2024 Address:[address] [place] [address] Pcp:Tony Roberts MD Subjective: * Chief Complaints: * ???Skin problem(s)Possible I nfection * ROS:?General/Constitutional:?Nausea?denies.?Vomiting?denies.?Hunger Thirst?denies.?Loss appetite?denies.?Chills?denies.?Fatigue?denies.?Fever?denies.?Night Sweats?denies.?Unexplained weight loss?denies.?Unexplained [...] Medical History:? * Surgical History:?Gall bladd er /2005tonsillectomy 1960 * Hospitalization/Major Diagno stic Procedure:?Denies Past Hospitalization * Family History:?No Family Hi story documented..? * Social History:?Tobacco Use:?Tobacco Use/Smoking?Are you a:?nonsmoker ?Additional Findings: Tobacco Non-User?Current non-smoker ?Tobacco use other than smoking?Are you an other tobacco user??No ???Drugs/Alcohol:?Drugs?Have you used drugs other than those for medical reasons in the past 12 months??No ?Alcohol Screen?Did you have a drink containing alcohol in the past year??Yes ?Points?0 ?Interpretation?Negative ???Miscellaneous:?Caffeine: yes, frequency:, 3-5 cups per day. [...] and reconciled with the patient * Allergies:?N.K.D.A.yes[Aller gies Verified] Objective: * Vitals:?Ht: 5 ft 9 in, Wt:19 0, BMI:28.06, Shoe size:10.5, BP:140/80 mm Hg. * Examination: ???Nails: ?NAILS are:?Elongated, overgrown, dystrophic, lytic, greater than 3mm thick, discolored and friable with crumbly malodorous subungual debris, with pain on palpation?, TA, T1, T3, T4, T5, T6, T8.?Dermatologic: ?SKIN FINDINGS:?Skin exam reveals normal texture, elasticity, and turgor. There are no masses. The interspaces are clear, B/L, ?Skin exam reveals Keratotic lesion(s) located at , Heel(s), B/L, ?Skin shows sign(s) of, Puncture Wound extending into the Sub Q WITH evidence of FOREIGN BODY, but without any sign(s) of infection, Plantar , Left?, Forefoot.?Neurological: ?SENSORY:?Neurological exam reveals intact sensorium, pain sensation normal, vibration sensation intact, pinprick sensation is normal in the lower extremities, 5.07 monofilament test performed at plantar aspects of 5 varied sites per foot shows sensation, normal, B/L, Pt denies, anesthesia, burning, paresthesia, tingling, B/L.?Vascular: ?DP PULSES:?2/4.?Abscess/infected nail: ?INSPECTION?Reveals nail incurvation, pain on palpation, groove laceration, inflammation, malodor, localized cellulitis, and purulent abscess with pre- operative size of approximately ( 1-2 ) mm square without exposed bone , Medial nail border , T5.?General Examination: ?GENERAL APPEARANCE:? Denies fever, chills, malaise, lymphadenopathy.? Assessment: * Assessment: 1.?Puncture wound with forei gn body, left foot, initial encounter - S91.342A?2.?Type 2 diabetes mellitus without complication - E11.9?3.?Abscess of toe, right - L02.611, Medial nail border , T5? Plan: * Treatment: 2.?Abscess of toe, right?Procedure: 42274 I&D ABSCESS- SIMPLE,SINGLE Notes: Patient Educated with: WOUND CARE INSTRUCTIONS.pdf (WOUND CARE INSTRUCTIONS.pdf)?? * Procedures:?Foreign Body Removal:?Anesthesia?was accomplished TOPICALLY with Lidocaine Hydrochloride Jelly 2 percent.?Skin?area prepped with alcohol or betadine , procedure performed under aseptic conditions.?Location of foreign body?As per exam.?Procedure?The wound was explored and the foreign body ( glass ) was removed along with devitalized tissue, thru skin and subcutaneous tissue, using sterile 15 blade sharp dissection. A sterile antibiotic ointment dressing was applied and wound care instructions were discussed and dispensed, Patient tolerated procedure well (76278) DIABETES: Pt was advised as to the risk of delayed or nonhealing due to diabetes. Pt is to call the office with any questions, concerns, or complications, ?.?I&D nail abscess:?Type?Single, Abscess.?Anesthesia?3cc of 1 percent Lidocaine Plain local anesthesic utilizing aseptic technique.?Location? Medial nail border , T5.?Procedure?Performed incision and drainage of Single Nail Abscess with use of sterile nail nipper/316 blade. Approximately ( 0.1 ) cc purulent fluid material was drained. The infected devitalized soft tissue was curettaged to healthy bleeding bed. Any affected nail portion was removed to the eponychium . Any evidence of granuloma was also removed at this time. No underlying bone was visualized. There was minimal bleeding as hemostasis was achieved through the temporary use of either a digital tournaquet or the aforementioned local with epinephrine. An application of sterile Bacitracin dressing was performed. Local wound care instructions were discussed and dispensed. Recommended Tylenol or Motrin for pain/discomfort (30131),?, DIABETES: Pt was advised as to the risk of delayed or nonhealing due to diabetes. Pt is to call the office with any questions, concerns, or complications.? * Procedure Codes:?58293 DRAIN AGE OF SKIN ABSCESS, Modifiers: XS , [id number] REMOVAL OF FOOT FOREIGN BODY, Modifiers: XS * Follow Up:?2-3 Weeks * Images: * Sign off status: Completed true * Provider:?Pankaj Mary DPM Date:?2023 Generated for Julien matson/Svitlana/eTlilianasmitting on:?06/03/2024 10:36 AM EST History and Physical Notes * Examination Category Sub-Category Detail Notes Category Not es Neurological SENSORY: Neurological exa m reveals intact sensorium, pain sensation normal, vibration sensation intact, pinprick sensation is normal in the lower extremities, 5.07 monofilament test performed at plantar aspects of 5 varied sites per foot shows sensation, normal, B/L, Pt denies, anesthesia, burning, paresthesia, tingling, B/L Dermatologic SKIN FINDINGS: Skin exam reveal s normal texture, elasticity, and turgor. There are no masses. The interspaces are clear, B/L, Skin exam reveals Keratotic lesion(s) located at , Heel(s), B/L, Skin shows sign(s) of, Puncture Wound extending into the Sub Q WITH evidence of FOREIGN BODY, but without any sign(s) of infection, Plantar , Left , Forefoot General Examination GENERAL APPEARANCE: Denies f ever, chills, malaise, lymphadenopathy Vascular DP PULSES (B): 2/4 Nails NAILS are: Elongated, overg rown, dystrophic, lytic, greater than 3mm thick, discolored and friable with crumbly malodorous subungual debris, with pain on palpation , TA, T1, T3, T4, T5, T6, T8 Abscess/infected nail INSPECTION Reveals na il incurvation, pain on palpation, groove laceration, inflammation, malodor, localized cellulitis, and purulent abscess with pre-operative size of approximately ( 1-2 ) mm square without exposed bone , Medial nail border , T5
--- OUTSIDE RECORDS SUMMARY | 2024-06-03 10:36 | XMS_ITS | Patient Health Record ---
Author Organization [facility] Address [address] [place] [address] Care Team Providers Care Vice President Of Advertising Name Role Phone Armando BAKER, Tony Primary Care Provider Unavailab Pankaj Yin Unavailable [phone] Sarah Marilou Unavailable [phone] Allergies No Known Allergies Results Component Value Reference Range Notes HEMOGLOBIN A1C (GLYCOHEMOGLO BIN) Reviewed date:12/05/2023 01:07:00 PM Interpretation: Performing Lab: Notes/Report: HEMOGLOBIN A1C % (HH) 7.0 Reason For Referral No Information Medications Medication SIG (Take, Route, Frequency, Duration) Notes Start Date End Date Status Simvastatin 40 MG TAKE 1 TABLET BY MARII TH EVERY EVENING Oral for 90 Days Active Lisinopril 40 MG TAKE 1 TABLET BY MARII TH EVERY DAY DIRECTED Oral for 90 Days Active glyBURIDE 2.5 MG TAKE 1 TABLET BY MARII TH EVERY MORNING Oral for 90 Days Active metFORMIN HCl 500 MG Oral for 90 Days Active DULoxetine HCl 30 MG TAKE 1 CAPSULE BY MOUTH DAILY Oral for 30 Days Active Dextroamphetamine Sulfate 5 MG TAKE 1 TABLET BY MOUTH THREE TIMES DAILY Oral for 30 Days Active Zolpidem Tartrate 10 MG TAKE 1 TABLET BY MOUTH AT BEDTIME NEEDED Oral for 30 Days PRN Active Cephalexin 500 MG Oral for 7 Days Not-Taking Extra Depth Orthopedic Shoes (1 Pair) with Customized Heat Molded Multidensity Innersoles (3 Pair) as directed Dx: NIDDM (E11.9), Hammertoe Foot Deformity (M20.41,M20.42), Preulcerative Skin Lesion(s) (L85.1) 02/05/2024 Active Atenolol 25 MG Oral for 90 Days Active Immunizations Vaccine Route Administration Date Status Comme nts Influenza Unknown 12/05/2023 Refused Social History Tobacco Use: Social History Observation [...] Problem Acquired hammer toe of right foot (533361639768303 5) Other hammer toe(s) (acquired), right foot (M20.41) Active confirmed Problem Acquired hammer toe of left foot (284360923450719 3) Other hammer toe(s) (acquired), left foot (M20.42) Active confirmed Problem Type 2 diabetes mellitus without complication (669053426) Type 2 diabetes mellitus without complication (E11.9) Active confirmed Vital Signs Blood pressure diastolic 80 mm Hg 04/29/2024 Height 5ft9in in 04/29/2024 Blood pressure systolic 140 mm Hg 04/29/2024 Weight 190 lbs 04/29/2024 BMI 28.06 kg/m2 04/29/2024 Procedures Procedure Date Ordered Date Performed Result Body Sit e 86146 I&D ABSCESS- SIMPLE,SINGLE 01/15/2024 N/A 29099- Removal of Foreign Body, Subcut 01/15/2024 N/A 19050-OLNYECB NAIL, 6 OR MORE 02/05/2024 N/A 10428- Debride <25 sq cm 02/05/2024 N/A 62253-GZIUJUP NAIL, 6 OR MORE 04/29/2024 N/A Encounters Encounter Location Date Provider Diagnosis [facility] [address] [address] 12/05/2023 Marilou Perica Ingrown nail L60.0 and Tinea unguium B35.[address] [facility] [address] [address] 01/15/2024 Pankaj Usman Type 2 diabetes mellitus without complication E11.9 ; Puncture wound with foreign body, left foot, initial encounter S91.342A and Abscess of toe, right L02.[address] [address] 02/05/2024 Pankaj Usman Pain in right toe(s) M79.674 ; Tinea unguium B35.1 ; Pain in left toe(s) M79.675 ; Type 2 diabetes mellitus without complication E11.9 ; Other hammer toe(s) (acquired), right foot M20.41 ; Other hammer toe(s) (acquired), left foot M20.42 and Skin ulcer of toe of right foot, limited to breakdown of skin L97.[address] [address] 04/29/2024 Pankaj Usman Pain in right toe(s) M79.674 ; Tinea unguium B35.1 ; Pain in left toe(s) M79.675 and Type 2 diabetes mellitus without complication E11.9 Assessments Encounter Date Diagnosis (ICD Code) Assessment Notes Treatment Notes Treatment Clinical Notes Section Notes 12/05/2023 Tinea unguium (ICD-10 - B35.1) 12/05/2023 Ingrown nail (ICD-10 - L60.0) 01/15/2024 Puncture wound with foreign body, left foot, initial encounter (ICD-10 - S91.342A) 01/15/2024 Type 2 diabetes mellitus without complication (ICD-10 - E11.9) 02/05/2024 Pain in right toe(s) (ICD-10 - M79.674) 04/29/2024 Tinea unguium (ICD-10 - B35.1) 04/29/2024 Pain in right toe(s) (ICD-10 - M79.674) 04/29/2024 Pain in left toe(s) (ICD-10 - M79.675) 02/05/2024 Tinea unguium (ICD-10 - B35.1) 01/15/2024 Abscess of toe, right (ICD-10 - L02.611) Patient Educated with: WOUND CARE INSTRUCTIONS.p df (WOUND CARE INSTRUCTIONS.p df) 02/05/2024 Pain in left toe(s) (ICD-10 - M79.675) 04/29/2024 Type 2 diabetes mellitus without complication (ICD-10 - E11.9) 02/05/2024 Type 2 diabetes mellitus without complication [...] INSTRUCTIONS.p df) 02/05/2024 Other Plan Of Treatment Pending Test Test Name Order Date 76143-FVAICTK NAIL, 6 OR MORE 02/05/2024 99925-[id number] NAIL, 6 OR MORE 04/29/2024 27923- Debride <25 sq cm 02/05/2024 28312 I&D ABSCESS- SIMPLE,SINGLE 024 22177- Removal of Foreign Body, Subcut 0 01/15/2024 Next Appt Details Provider Name:Pankaj Raphael Usman , 08/01/2024 12:00:00 PM, [address] [facility], [place], [address], Insurance Providers Payer Name Payer Address Payer Phone Subscriber Number Group Number Insured Name Patient Relationship to Insured Coverage Start Date Coverage End Date Medicare [employer] [address] [facility] [place] [address] [id number] Kevin Hill Self - patient is the insured [employer] [place] [employer]vantage [facility] [address] [place] [address] [id number] Kevin Hill Self - patient is the insured Medical (General) History Medical History History ICD Code Diabetic Gall bladder problems High blood pressure Psoriasis/eczema Measles Chicken pox Hypercholesterolemia Surgical History Surgery Date(Month/Year) Gall bladder 10/2004 tonsillectomy 1960
--- OUTSIDE RECORDS SUMMARY | 2024-06-03 10:36 | XMS_ITS ---
Author Organization [facility] Address [address] [place] [address] Care Team Providers Care Pasting Inspector Name Role Phone Tony Roberts MD Primary Care Provider Unavailab Pankaj Yin Unavailable [phone] Allergies No Known Allergies REASON FOR VISIT At Risk Footcare, Painful Nail(s) aggravated by shoes and causing difficulty standing/walking. Medications Medication SIG (Take, Route, Frequency, Duration) Notes Start Date End Date Status Simvastatin 40 MG TAKE 1 TABLET BY MARII TH EVERY EVENING Oral for 90 Days Active Lisinopril 40 MG TAKE 1 TABLET BY MARII TH EVERY DAY DIRECTED Oral for 90 Days Active glyBURIDE 2.5 MG TAKE 1 TABLET BY MARII TH EVERY MORNING Oral for 90 Days Active Extra Depth Orthopedic Shoes (1 Pair) with Customized Heat Molded Multidensity Innersoles (3 Pair) as directed Dx: NIDDM (E11.9), Hammertoe Foot Deformity (M20.41,M20.42), Preulcerative Skin Lesion(s) (L85.1) 02/05/2024 Active Atenolol 25 MG Oral for 90 Days Active metFORMIN HCl [...] Are you an other tobacco user? No Vital Signs Height 5ft9in in 04/29/2024 Weight 190 lbs 04/29/2024 BMI 28.06 kg/m2 04/29/2024 Blood pressure systolic 140 mm Hg 04/29/20 24 Blood pressure diastolic 80 mm Hg 024 Procedures Procedure Date Ordered Date Performed Result Body Sit e 39606-[id number] NAIL, 6 OR MORE 04/29/2024 N/A Encounters Encounter Location Date Provider Diagnosis [facility] [address] [place] [address] 04/29/2024 Pankaj Usman Pain in right toe(s) M79.674 ; Tinea unguium B35.1 ; Pain in left toe(s) M79.675 and Type 2 diabetes mellitus without complication E11.9 Assessments Encounter Date Diagnosis (ICD Code) Assessment Notes Treatment Notes Treatment Clinical Notes Section Notes 04/29/2024 Pain in right toe(s) (ICD-10 - M79.674) 04/29/2024 Tinea unguium (ICD-10 - B35.1) 04/29/2024 Pain in left toe(s) (ICD-10 - M79.675) 04/29/2024 Type 2 diabetes mellitus without complication (ICD-10 - E11.9) Plan Of Treatment Pending Test Test Name Order Date [id number] NAIL, 6 OR MORE 04/29/2024 Next Appt Details Follow Up: prn, Reason: Provider Name:Pankaj Mary , 08/01/2024 12:00:00 PM, [address] [place] [address], [phone], Procedure Notes * Category Sub-Category Detail Notes Debride Nail 6-10 Nail debridement Performance o f this nail treatment by a nonprofessional would put this patients foot and overall health at risk. Therefore, debridement to affected nail(s), as described in exam, was performed extensively to reduce/remove overall nail length, girth, thickness, subungual debris, and necrotic tissue, by manual and/or electrical means through the use of a nail nipper and/or dremel-type disk grinder, to a more viable healthy nail plate or bed tissue 6-10 nails in total. Silver nitrate was used for any petechial bleeding as necessary. Definitive antifungal treatment options, both pharmaceutical and surgical, have been reviewed and discussed with the patient. The patient solely prefers the use of intermittent/as needed professional debridement services for their nail condition and understands the need for additional periodic treatments to maintain effectiveness in symptomatic relief - 27559 Progress Notes * Kevin HILL KDOB:[birth year] (68 yo M)Acc No.[id number]:04/29/2024 Progress Note Patient:?Kevin HILL Provider:?Pankaj Mary DPM :1955???Age:68 Y???Sex:Male Marcial e:04/29/2024 Address:[address] [place] [address] Pcp:Tony Roberts MD Subjective: * Chief Complaints: * ???At Risk FootcarePainful N ail(s) aggravated by shoes and causing difficulty standing/walking. * HPI: ???At Risk footcare:?Pt States Last PCP Visit:?Date?01/28/2024 * ROS:?General/Constitutional:?Nausea?denies.?Vomiting?denies.?Hunger Thirst?denies.?Loss appetite?denies.?Chills?denies.?Fatigue?denies.?Fever?denies.?Night Sweats?denies.?Unexplained weight loss?denies.?Unexplained [...] BY MOUTH AT BEDTIME NEEDED Oral , Notes to Pharmacist: PRNDextroamphetamine Sulfate 5 MG Tablet TAKE 1 [...] EVENING Oral Atenolol 25 MG Tablet Oral Extra Depth Orthopedic Shoes (1 Pair) with Customized Heat Molded Multidensity Innersoles (3 Pair) as directed Dx: NIDDM (E11.9), Hammertoe Foot Deformity (M20.41,M20.42), Preulcerative Skin Lesion(s) (L85.1) Taking Zolpidem Tartrate 10 MG Tablet TAKE 1 TABLET BY MOUTH AT BEDTIME NEEDED Oral , Notes to Pharmacist: PRNTaking Dextroamphetamine Sulfate 5 MG Tablet TAKE [...] Oral Taking Atenolol 25 MG Tablet Oral Taking Extra Depth Orthopedic Shoes (1 Pair) with Customized Heat Molded Multidensity Innersoles (3 Pair) as directed Dx: NIDDM (E11.9), Hammertoe Foot Deformity (M20.41,M20.42), Preulcerative Skin Lesion(s) (L85.1) Not-Taking/PRNCephalexin 500 MG Capsule Oral Medication List reviewed and reconciled with the patientNot-Taking/PRN Cephalexin 500 MG Capsule Oral Medication List reviewed and reconciled with the patient * Allergies:?N.K.D.A.yes[Aller gies Verified] Objective: * Vitals:?Ht:5ft9in, Wt:190, B HI:28.06, Shoe size:10.5, BP:140/80mm Hg, BS:143, Ht-cm: 175.26 cm, Wt-k.18 kg. * ???Past Orders: ???Lab:HEMOGLOBIN A1C (GLYCO HEMOGLOBIN) (Order Date - 11/19/2023) (Collection Date & Time - 11/19/2023 01:06 PM) ? Value Reference Range ?HEMOGLOBIN A1C % (HH) 7.0 * Examination: ???Nails: ?NAILS are:?Elongated, overgrown, dystrophic, lytic, greater than 3mm thick, discolored and friable with crumbly malodorous subungual debris, with pain on palpation , TA, T1, T3, T4, T5, T6, T8 , T9.? Assessment: * Assessment: 1.?Tinea unguium - B35.1 (Pr imary)???2.?Pain in right toe(s) - M79.674???3.?Pain in left toe(s) - M79.675???4.?Type 2 diabetes mellitus without complication - E11.9??? Plan: * Treatment: * Procedures:?Debride Nail 6-10:?Nail debridement?Performance of this nail treatment by a nonprofessional would put this patients foot and overall health at risk. Therefore, debridement to affected nail(s), as described in exam, was performed extensively to reduce/remove overall nail length, girth, thickness, subungual debris, and necrotic tissue, by manual and/or electrical means through the use of a nail nipper and/or dremel-type disk grinder, to a more viable healthy nail plate or bed tissue 6-10 nails in total. Silver nitrate was used for any petechial bleeding as necessary. Definitive antifungal treatment options, both pharmaceutical and surgical, have been reviewed and discussed with the patient. The patient solely prefers the use of intermittent/as needed professional debridement services for their nail condition and understands the need for additional periodic treatments to maintain effectiveness in symptomatic relief - 82789.? * Procedure Codes:?44048 DEBRI DE NAIL, 6 OR MORE * Follow Up:?prn * Images: * Sign off status: Completed true * Provider:?Pankaj Mary DPM Date:?2023 Generated for Julien matson/Svitlana/Dannielle on:?06/03/2024 10:35 AM EST History and Physical Notes * HPI (History of Present Illness) Category Sub-Category Detail Notes Category Not es At Risk footcare Pt States Last PCP Visit: Date: 4 Examination Category Sub-Category Detail Notes Category Not es Nails NAILS are: Elongated, overg rown, dystrophic, lytic, greater than 3mm thick, discolored and friable with crumbly malodorous subungual debris, with pain on palpation , TA, T1, T3, T4, T5, T6, T8 , T9
--- NOTE | 2024-06-03 10:50 | A.OFFPSYCH_ITS ---
Intake Intake Visit Reasons: depression Allergies No Known Allergies Allergy (Verified 05/30/22 11:58) HPI- Psychiatric Chief Complaint: depression HPI Narrative: Pt seen in f/u mood has been generally stable no new med problems generally no sig blues cymbalta 30 dexedrine 5 tid helps with brain fog does exercise daily Past Psychiatric History: Pt with hx of ADD and dysthymia has failed multiple antidep trials feels best on dexedrine and duloxitine Mental Status Exam Mental Status Exam Narrative: Mental Status Exam Narrative: Appearance: Casually dressed Behavior: Cooperative appropriate psychomotor: Within normal limits Speech: Normal volume and prosody Thought proccess logical and goal-directed Thought content: Future oriented some worries Mood: Euthymic Affect: Appropriate to mood some anxiety SI:denies HI:denies VH/AH:none Delusions: None Insight/judgment: Good insight and judgment Memory/cog: alert basic memory intact Assessment and Plan Assessment & Plan (1) ADD (attention deficit disorder) without hyperactivity: Status: Acute Code(s): F98.8 - Other specified behavioral and emotional disorders with onset usually occurring in childhood and adolescence Plan cont plan of care no change indicated Medications: Refilled dextroamphetamine sulfate Partial Fill upon patient request. 5 mg PO TID 90 tabs 0RF duloxetine 30 mg PO DAILY 90 caps 1RF Counseling and coordination of Care Details: I spent [] minutes reviewing the record, seeing the patient and documenting in the medical record. Counseling provided to the patient/caregiver as outlined below. Addressed patient/caregiver concerns regarding current medication regime including effective adherence. Addressed patient/caregiver concerns regarding diagnosis and prognosis including accuracy of diagnosis, prognosis over time, impact of diagnosis. Addressed patient/caregiver concerns regarding impact of recent stressors. [facility] Medical History (Updated 11/19/23 @ 09:39 by Gwyn Mane MD) Generalized anxiety disorder Dysthymia ADD (attention deficit disorder) without hyperactivity Hypercholesteremia Hypertension Social History: pt x 2 1 b 2 girls retired college grad 2 sibling 1 b 1 son in residency pgm [employer] nephew add Substance History: na Trauma History: na Coding Level of Care Code Est Pt Level 4 (40385) Diagnoses ADD (attention deficit disorder) without hyperactivity F98.8
== END 2024-06-03 12:20 | disposition home or self-care (01) ==
LOC: HO.HOP 10:30
PROVIDERS: PCP Family Medicine; Visit Provider Psychiatry & Neurology Psychiatry
DX: F98.8 Other specified behavioral and emotional disorders with onset usually occurring in childhood and adolescence (principal)
CPT/HCPCS: 99214

== ENCOUNTER → 2024-06-03 10:30 | Outpatient (BNVA) | payer MEDICARE, OTHER, SELFPAY | PROVIDERS: PCP Family Medicine; Visit Provider Psychiatry & Neurology Psychiatry | DX: F98.8 Other specified behavioral and emotional disorders with onset usually occurring in childhood and adolescence (principal) | CPT/HCPCS: 99212 ==

== ENCOUNTER 2024-10-03 11:59 | Outpatient (AMB) | payer MEDICARE, OTHER, SELFPAY ==
--- NOTE | 2024-10-03 12:37 | A.OFFPSYCH_ITS ---
Intake Intake Visit Reasons: depression Allergies No Known Allergies Allergy (Verified 05/30/22 11:58) HPI- Psychiatric Chief Complaint: depression HPI Narrative: Patient seen psychiatric follow-up. Patient concerned about vacation whether or not be able to take Dexedrine patient has generally been stable has some degree of chronic dissatisfaction will need a new PCP as his primary care is retiring no new medical concerns patient generally doing okay he remains on Cymbalta Dexedrine generally 5 b.i.d. patient retired does tend to work out daily gets along well with his Past Psychiatric History: Pt with hx of ADD and dysthymia has failed multiple antidep trials feels best on dexedrine and duloxitine Mental Status Exam Mental Status Exam Narrative: Mental Status Exam Narrative: Appearance: Casually dressed Behavior: Cooperative appropriate psychomotor: Within normal limits Speech: Normal volume and prosody Thought proccess logical and goal-directed Thought content: Future oriented some worries Mood: Euthymic Affect: Appropriate to mood some anxiety SI:denies HI:denies VH/AH:none Delusions: None Insight/judgment: Good insight and judgment Memory/cog: alert basic memory intact Assessment and Plan Assessment & Plan (1) ADD (attention deficit disorder) without hyperactivity: Status: Acute Code(s): F98.8 - Other specified behavioral and emotional disorders with onset usually occurring in childhood and adolescence (2) Dysthymia: Status: Acute Code(s): F34.1 - Dysthymic disorder Plan Continue plan of care generally doing well on duloxetine and Dexedrine no evidence of tolerance diversion or adverse effect may need a letter to take Dexedrine [place] Medications: Refilled dextroamphetamine sulfate Partial Fill upon patient request. 5 mg PO TID 180 tabs 0RF F98.8 - Other specified behavioral and emotional disorders with onset usually occurring in childhood and adolescence duloxetine 30 mg PO DAILY 90 caps 1RF Counseling and coordination of Care Diagnosis and Prognosis Counseling: Adequacy of current interventions Details: I spent [30] minutes reviewing the record, seeing the patient and documenting in the medical record. Counseling provided to the patient/caregiver as outlined below. Addressed patient/caregiver concerns regarding current medication regime including effective adherence. Addressed patient/caregiver concerns regarding diagnosis and prognosis including accuracy of diagnosis, prognosis over time, impact of diagnosis. Addressed patient/caregiver concerns regarding impact of recent stressors. [facility] Medical History (Updated 11/19/23 @ 09:39 by Gwyn Mane MD) Generalized anxiety disorder Dysthymia ADD (attention deficit disorder) without hyperactivity Hypercholesteremia Hypertension Social History: pt x 2 1 b 2 girls retired college grad 2 sibling 1 b 1 son in residency pgm [facility] nephew add Substance History: na Trauma History: na Coding Level of Care Code Est Pt Level 4 (02666) Diagnoses ADD (attention deficit disorder) without hyperactivity F98.8 Dysthymia F34.1
--- OUTSIDE RECORDS SUMMARY | 2024-10-03 12:49 | XMS_ITS | Continuity of Care Document ---
Author Organization [facility] Address [address] [place] [address] Phone [phone] Social History Type Date Description Comments Sex Unknown Medical Devices Description No Information Available Encounters Description No Information Available Assessments Description No Information Available Plan of Treatment No Information Available Functional Status Description No Information Available Mental Status Description No Information Available Referrals Description No Information Available
== END 2024-10-03 13:17 | disposition home or self-care (01) ==
LOC: HO.HOP 11:59
PROVIDERS: PCP Family Medicine; Visit Provider Psychiatry & Neurology Psychiatry
DX: F98.8 Other specified behavioral and emotional disorders with onset usually occurring in childhood and adolescence (principal); F34.1 Dysthymic disorder
CPT/HCPCS: 99214

== ENCOUNTER → 2024-10-03 11:59 | Outpatient (BNVA) | payer MEDICARE, OTHER, SELFPAY | PROVIDERS: PCP Family Medicine; Visit Provider Psychiatry & Neurology Psychiatry | DX: F34.1 Dysthymic disorder (principal); F98.8 Other specified behavioral and emotional disorders with onset usually occurring in childhood and adolescence; Z71.89 Other specified counseling | CPT/HCPCS: 99212 ==

== ENCOUNTER 2025-01-12 14:06 | Outpatient (AMB) | payer MEDICARE, OTHER, SELFPAY ==
--- OUTSIDE RECORDS SUMMARY | 2025-01-12 14:34 | XMS_ITS | Encounter Summary ---
Author Organization [facility] Address [address] [place] [address] [place] [address] Phone Care Team Providers Care Soda Tester Name Role Phone Tony Roberts MD Primary Care Provider [phone] Encounter Details Date Type Department Care Team (Late st Contact Info) Description 04/11/2019 Transcribe Orders [facility] [address] [place] [id number] Tony Roberts MD [address] [place] [address] [place] [id number] Type 2 diabetes mellitus without complication, unspecified whether snf insulin use (Primary Dx); Hypertension, unspecified type Social History Tobacco Use Types Packs/Day Years Used Date Smoking Tobacco: Never Assessed Sex and Gender Information Value Date Recorded Sex Assigned at Not on file Legal Sex Male 9:58 PM EDT Gender Identity Not on file Sexual Orientation Not on file documented as of this encounter Plan of Treatment Not on file documented as of this encounter Results * Creatinine/eGFR (04/11/2019 8:04 AM EST) CREATININE 1.10 0.5 - 1.5 mg/dL [facility] EGFR 70 >59 mL/min/1.7 3m2 [facility] Comment:If patient is black, multiply result by 1.159. Estimated glomerular filtration rate calculated using the CKD-EPI equation. Blood 04/11/2019 8:04 AM EST 04/11/2019 8:20 AM EST us Tony Roberts MD LAB BLOOD ORDERABLES Final Result [address] [address] * (ABNORMAL) Hemoglobin A1c (04/11/2019 8:04 AM EST) HEMOGLOBIN A1C 7.9(H) 4.3 - 5.8 % [facility] Blood 04/11/2019 8:04 AM EST 04/11/2019 8:20 AM EST us Tony Roberts MD LAB BLOOD ORDERABLES Final Result Performing Organization Address [facility]/ZIP Co de Phone Number [address] [address] * (ABNORMAL) Glucose (04/11/2019 8:04 AM EST) GLUCOSE 160(H) 70 - 99 mg/dL [facility] Blood 04/11/2019 8:04 AM EST 04/11/2019 8:20 AM EST us Tony Roberts MD LAB BLOOD ORDERABLES Final Result Performing Organization Address [facility] Co de Phone Number [address] [address] * CPK (creatine kinase) (04/11/2019 8:04 AM EST) CREATINE KINASE 145 35 - 232 U/L [facility] Blood 04/11/2019 8:04 AM EST 04/11/2019 8:20 AM EST us Tony Roberts MD LAB BLOOD ORDERABLES Final Result Performing Organization Address [facility]/ZIP Co de Phone Number [address] [address] * (ABNORMAL) BUN (04/11/2019 8:04 AM EST) BUN 21(H) 6 - 19 mg/dL [facility] Blood 04/11/2019 8:04 AM EST 04/11/2019 8:20 AM EST Tony Roberts MD LAB BLOOD ORDERABLES Final Result Performing Organization Address [facility] Co de Phone Number [address] [address] * Alanine aminotransferase (ALT) (04/11/2019 8:04 AM EST) ALT 24 0 - 40 U/L [facility] Blood 04/11/2019 8:04 AM EST 04/11/2019 8:20 AM EST Tony Roberts MD LAB BLOOD ORDERABLES Final Result Performing Organization Address [facility] Phone Number [address] [address] * Aspartate aminotransferase (AST) (04/11/2019 8:04 AM EST) AST 18 0 - 37 U/L [facility] Blood 04/11/2019 8:04 AM EST 04/11/2019 8:20 AM EST Tony Roberts MD LAB BLOOD ORDERABLES Final Result Performing Organization Address [facility] de Phone Number [address] [address] * (ABNORMAL) Electrolytes (04/11/2019 8:04 AM EST) SODIUM 138 133 - 146 mmol/L [facility] POTASSIUM 5.2(H) 3.3 - 5.1 mmol/L [facility] CHLORIDE 100 96 - 108 mmol/L [facility] CO2 27 21 - 35 mmol/L [facility] ANION GAP 16 10 - 20 mmol/L [facility] Blood 04/11/2019 8:04 AM EST 04/11/2019 8:20 AM EST us Tony Roberts MD LAB BLOOD ORDERABLES Final Result [address] [address] documented in this encounter Visit Diagnoses Diagnosis Type 2 diabetes mellitus without complication, unspecified whether snf insulin use- Primary Hypertension, unspecified type documented in this encounter Care Teams Soda Tester Relationship Specialty Start Date End Date Tony Roberts MD [address] [place] [address] [place] [address] PCP - General Internal Medicine 11/05/18 documented as of this encounter Additional Source Comments The information contained in this document represents components of the legal health record. It is not the complete legal health record.[facility]
--- OUTSIDE RECORDS SUMMARY | 2025-01-12 14:34 | XMS_ITS | Continuity of Care Document ---
Author Organization [facility] Address [address] [place] [address] Phone [phone] Social History Type Date Description Comments Sex Male Sex Unknown Medical Devices Description No Information Available Encounters Description No Information Available Assessments Description No Information Available Plan of Treatment No Information Available Functional Status Description No Information Available Mental Status Description No Information Available Referrals Description No Information Available
--- NOTE | 2025-01-12 14:35 | MHC.OFFVISPS ---
Intake Intake Visit Reasons: depression Allergies No Known Allergies Allergy (Verified 05/30/22 11:58) HPI- Psychiatric Chief Complaint: depression HPI Narrative: Patient is a 69-year-old male with a past history of dysthymia and ADD has generally done better since intermediate. Has son currently in radiology program at [employer] Pt seen in f/u generally in good spirits did not end up traveling overseas also decided not to travel somewhere that had restrictions on including medication he is taking. Patient continues on relatively low-dose Cymbalta Dexedrine with generally good effect. Gets along well with his will be having a new primary care physician as Dr. Roberts retired. Goes to gym regularly no acute medical concerns Past Psychiatric History: Pt with hx of ADD and dysthymia has failed multiple antidep trials feels best on dexedrine and duloxitine Mental Status Exam Mental Status Exam Narrative: Mental Status Exam Narrative: Appearance: Casually dressed Behavior: Cooperative appropriate psychomotor: Within normal limits Speech: Normal volume and prosody Thought proccess logical and goal-directed Thought content: Future oriented some worries regarding his son Mood: Euthymic Affect: Appropriate to mood some mild anxiety SI:denies HI:denies VH/AH:none Delusions: None Insight/judgment: Good insight and judgment Memory/cog: alert basic memory intact Assessment and Plan Assessment & Plan (1) ADD (attention deficit disorder) without hyperactivity: Status: Acute Code(s): F98.8 - Other specified behavioral and emotional disorders with onset usually occurring in childhood and adolescence (2) Generalized anxiety disorder: Status: Acute Code(s): F41.1 - Generalized anxiety disorder (3) Dysthymia: Status: Acute Code(s): F34.1 - Dysthymic disorder Plan Continue plan of care patient stable on current regimen future oriented no side effects blood pressure in control no chest pain or palpitations or other side effects from low-dose stimulants Medications: Refilled dextroamphetamine sulfate Partial Fill upon patient request. 5 mg PO TID 180 tabs 0RF F98.8 - Other specified behavioral and emotional disorders with onset usually occurring in childhood and adolescence Counseling and coordination of Care Medication management counseling: Effectiveness, Side effects and Dosing range Details-Med Mgmt counseling: We have tried tapering off praised previously patient does well on this low-dose combination Diagnosis and Prognosis Counseling: Adequacy of current interventions Details: I spent [30] minutes reviewing the record, seeing the patient and documenting in the medical record. Counseling provided to the patient/caregiver as outlined below. Addressed patient/caregiver concerns regarding current medication regime including effective adherence. Addressed patient/caregiver concerns regarding diagnosis and prognosis including accuracy of diagnosis, prognosis over time, impact of diagnosis. Addressed patient/caregiver concerns regarding impact of recent stressors. [facility] Medical History (Updated 11/19/23 @ 09:39 by Gwyn Mane MD) Generalized anxiety disorder Dysthymia ADD (attention deficit disorder) without hyperactivity Hypercholesteremia Hypertension Social History: pt x 2 1 b 2 girls retired college grad 2 sibling 1 b 1 son in residency pgm [facility] [employer] nephew add Substance History: na Trauma History: na Coding Level of Care Code Est Pt Level 4 (43732) Diagnoses ADD (attention deficit disorder) without hyperactivity F98.8 Generalized anxiety disorder F41.1 Dysthymia F34.1
== END 2025-01-12 15:08 | disposition home or self-care (01) ==
LOC: HO.HOP 14:06
PROVIDERS: PCP Family Medicine; Visit Provider Psychiatry & Neurology Psychiatry
DX: F98.8 Other specified behavioral and emotional disorders with onset usually occurring in childhood and adolescence (principal); F41.1 Generalized anxiety disorder; F34.1 Dysthymic disorder
CPT/HCPCS: 99214

== ENCOUNTER → 2025-01-12 14:06 | Outpatient (BNVA) | payer MEDICARE, OTHER, SELFPAY | PROVIDERS: PCP Family Medicine; Visit Provider Psychiatry & Neurology Psychiatry | DX: F98.8 Other specified behavioral and emotional disorders with onset usually occurring in childhood and adolescence (principal); F41.1 Generalized anxiety disorder; F34.1 Dysthymic disorder | CPT/HCPCS: 99212 ==

== ENCOUNTER 2025-04-27 14:08 | Outpatient (AMB) | payer MEDICARE, OTHER, SELFPAY ==
--- NOTE | 2025-04-27 14:42 | A.OFFPSYCH_ITS ---
Intake Intake Visit Reasons: depression Allergies No Known Allergies Allergy (Verified 05/30/22 11:58) Medication List - Last Reconciled 04/27/25 by Gwyn Mane MD atenolol 25 mg PO BID dextroamphetamine sulfate 5 mg PO TID duloxetine 30 mg PO DAILY glyburide 2.5 mg PO QAM lisinopril 40 mg PO DAILY metformin 1,000 mg PO DIRECTED simvastatin 40 mg PO QPM zolpidem 10 mg PO BEDTIME PRN HPI- Psychiatric Chief Complaint: depression HPI Narrative: Patient seen psychiatric follow-up. Patient's primary care physician has retired and he does have a new primary care provider. Patient has been quite concerned regarding his son who is in a radiology program at [facility] [employer] [facility] [employer] in [place] and his not wish to live in [place] anymore and this putting pressure on the patient's son to leave the residency program. Patient has been quite concerned about this. General his mood is okay some occasional word- finding and short-term memory difficulty. No clear progression retains ability to do his normal tasks not getting lost. Patient does have risk factors diabetes and hypertension anxiety and depressive symptoms generally in control. Patient on Cymbalta low-dose Dexedrine low-dose times years for ADD Past Psychiatric History: Pt with hx of ADD and dysthymia has failed multiple antidep trials feels best on dexedrine and duloxitine Mental Status Exam Mental Status Exam Narrative: Appearance: Casually dressed Behavior: Cooperative appropriate psychomotor: Within normal limits Speech: Normal volume and prosody Thought proccess logical and goal-directed Thought content: Future oriented some worries regarding his son possibly dropping out of his residency Mood: Okay mild anxiety Affect: Appropriate to mood some mild anxiety some Flattening SI:denies HI:denies VH/AH:none Delusions: None Insight/judgment: Good insight and judgment Memory/cog: alert basic memory intact Assessment and Plan Assessment & Plan (1) ADD (attention deficit disorder) without hyperactivity: Status: Acute Code(s): F98.8 - Other specified behavioral and emotional disorders with onset usually occurring in childhood and adolescence (2) Dysthymia: Status: Acute Code(s): F34.1 - Dysthymic disorder (3) Generalized anxiety disorder: Status: Acute Code(s): F41.1 - Generalized anxiety disorder (4) Word finding difficulty: Status: Acute Code(s): R47.89 - Other speech disturbances Plan Patient complaining of some mild cognitive changes occasional word-finding mild short-term memory problems at times discussed brain health control these attention labs ordered hemoglobin A1c B12 folate lipid panel TSH free T4 Medications: Refilled duloxetine 30 mg PO DAILY 90 caps 1RF dextroamphetamine sulfate Partial Fill upon patient request. 5 mg PO TID 180 tabs 0RF F98.8 - Other specified behavioral and emotional disorders with onset usually occurring in childhood and adolescence Orders: Orders Vitamin B12 and Folate 04/27/25 F98.8 - Other specified behavioral and emotional disorders with onset usually occurring in childhood and adolescence, F41.1 - Generalized anxiety disorder, R47.89 - Other speech disturbances, E11.9 - Type 2 diabetes mellitus without complications Lipid Panel 04/27/25 F98.8 - Other specified behavioral and emotional disorders with onset usually occurring in childhood and adolescence, F41.1 - Generalized anxiety disorder, R47.89 - Other speech disturbances, E11.9 - Type 2 diabetes mellitus without complications TSH reflex Free T4 04/27/25 F98.8 - Other specified behavioral and emotional disorders with onset usually occurring in childhood and adolescence, F41.1 - Generalized anxiety disorder, R47.89 - Other speech disturbances, E11.9 - Type 2 diabetes mellitus without complications Hemoglobin A1c 04/27/25 F98.8 - Other specified behavioral and emotional disorders with onset usually occurring in childhood and adolescence, F41.1 - Generalized anxiety disorder, R47.89 - Other speech disturbances, E11.9 - Type 2 diabetes mellitus without complications Complete Blood Count Auto Diff 04/27/25 F98.8 - Other specified behavioral and emotional disorders with onset usually occurring in childhood and adolescence, F41.1 - Generalized anxiety disorder, R47.89 - Other speech disturbances, E11.9 - Type 2 diabetes mellitus without complications Comprehensive Met. Panel 04/27/25 F98.8 - Other specified behavioral and emotional disorders with onset usually occurring in childhood and adolescence, F41.1 - Generalized anxiety disorder, R47.89 - Other speech disturbances, E11.9 - Type 2 diabetes mellitus without complications Counseling and coordination of Care Details-Self Mgmt counseling: Extensive discussion regarding issues related to his son and his lyoinlij-vh-bum whoght be insisting that his son dropped out of his radiology residency Also discussion regarding brain health and management medical issues Details: I spent 40 minutes reviewing the record, seeing the patient and documenting in the medical record. Counseling provided to the patient/caregiver as outlined below. Addressed patient/caregiver concerns regarding current medication regime including effective adherence. Addressed patient/caregiver concerns regarding diagnosis and prognosis including accuracy of diagnosis, prognosis over time, impact of diagnosis. Addressed patient/caregiver concerns regarding impact of recent stressors. [facility] Medical History (Updated 04/27/25 @ 14:39 by Gwyn Mane MD) Generalized anxiety disorder Dysthymia ADD (attention deficit disorder) without hyperactivity Hypercholesteremia Hypertension Surgical History (Updated 03/31/25 @ 15:45 by Ramandeep Sagastume) History of colonoscopy (~01/02/20) Social History: pt x 2 1 b 2 girls retired college grad 2 sibling 1 b 1 son in residency [facility] nephew add Substance History: na Trauma History: na Coding Level of Care Code Est Pt Level 3 (53419) Therapy 30m w/E&M (31913) Diagnoses ADD (attention deficit disorder) without hyperactivity F98.8 Dysthymia F34.1 Generalized anxiety disorder F41.1 Word finding difficulty R47.89
--- OUTSIDE RECORDS SUMMARY | 2025-04-27 19:06 | XMS_ITS | Clinical Summary ---
Author Organization Located Within [facility] Address [address] [place] [address] Phone Care Team Providers Care Mailing Jogger Name Role Phone Tony Roberts MD Primary Care Provider Allergies Active Allergy Reactions Criticality Noted Date Comments Magnesium Carbonate-Asafetida 2023 CANCEL/ ERROR Medications atenolol (TENORMIN) 25 MG tablet Take 1 tablet by mouth 2 (two) times a day. 10/01/2023 Active dextroamphetami ne sulfate 5 MG tablet Take 5 mg by mouth 3 (three) times a day. 11/15/2023 Active DULoxetine (CYMBALTA) 30 MG capsule Take 1 capsule by mouth every morning. 11/09/2023 Active glyBURIDE (DIABETA) 2.5 MG tablet Take 2.5 mg by mouth every morning. 11/06/2023 Active lisinopril (PRINIVIL,ZESTR IL) 40 MG tablet Take 40 mg by mouth daily. 10/18/2023 Active metFORMIN (GLUCOPHAGE) 500 MG tablet Take by mouth. 11/09/2023 Active simvastatin (ZOCOR) 40 MG tablet Take 40 mg by mouth nightly at bedtime. 10/18/2023 Active Active Problems No known active problems Immunizations Immunization Administration Dates Next Due COVID-19 (Pre-03/26) Moderna Vaccine, mRNA, PF 0 09/30/2020,09/01/2020 Social History Tobacco Use Types Packs/Day Years Used Date Smoking Tobacco: Never Smokeless Tobacco: Never Education Answer Date Recorded Are you interested in more education? Not on allie e 09/29/2022 Are you concerned about learning? Not on file 09/29/2022 No 09/29/2022 No 09/29/2022 Digital Access Answer Date Recorded No 10/30/2022 No 10/30/2022 Reliable internet access at home? Not on file 10/30/2022 Device with a working camera? Not on file Sex and Gender Information Value Date Recorded Sex Assigned at Not on file Legal Sex Male 9:58 PM EDT Gender Identity Not on file Sexual Orientation Not on file Last Filed Vital Signs Vital Sign Reading Time Taken Comments Blood Pressure 150/95 11/26/2023 2:52 PM EDT Pulse 86 11/26/2023 2:52 PM EDT Temperature 36.7 C (98 F) 11/26/2023 2:52 PM EDT Respiratory Rate 18 11/26/2023 2:52 PM EDT Oxygen Saturation 98% 11/26/2023 2:52 PM EDT Inhaled Oxygen Concentration - - Weight - - Height - - Body Mass Index - - Plan of Treatment Health Maintenance Due Date Last Done Comments Adult Td,Tdap Booster 1953 DEPRESSION SCREENING 1965 HEPATITIS C SCREENING 1971 PNEUMOCOCCAL VACCINES (50+ years) (1 of 2 - PCV) 1972 COLOGUARD 1998 COLONOSCOPY 1998 COLORECTAL CANCER SCREENING 1998 FIT TEST 1998 FOBT 1998 SIGMOIDOSCOPY 1998 VIRTUAL COLONOSCOPY 1998 ZOSTER VACCINES (1 of 2) 2003 DIABETIC EYE EXAM 09/05/2018 BLOOD PRESSURE 05/27/2024 11/26/2023 INFLUENZA VACCINE (#1) 2025 COVID-19 VACCINE ( season) 2025 04/18/2021, 09/30/2020, 09/01/2020 HEMOGLOBIN A1C 05/27/2025 11/25/2024, 01/03, 05/18/2023, Additional history exists CREATININE LEVEL 11/25/2025 11/25/2024, , 05/18/2023, Additional history exists POTASSIUM LEVEL 11/25/2025 11/25/2024, 08/2 07/2023, 05/18/2023, Additional history exists RSV VACCINE (1 - 1-dose 75+ series) 2028 SMOKING STATUS SCREENING (Once After 26 Yrs) Completed 11/26/2023 HEPATITIS A VACCINES Aged Out No long er eligible based on patient's age to complete this topic HIB VACCINES Aged Out No longer eligi ble based on patient's age to complete this topic MENINGOCOCCAL VACCINES (ACWY) Aged Out No longer eligible based on patient's age to complete this topic MENINGOCOCCAL VACCINES (B) Aged Out N o longer eligible based on patient's age to complete this topic Medical Devices Not on file Procedures Procedure Name Priority Date/Time Associated Diagnosis Comments HEMOGLOBIN A1C Routine 11/25/2024 8:28 AM EDT Hypertension, unspecified type Type 2 diabetes mellitus without complication, without long-term current use of insulin POTASSIUM Routine 11/25/2024 8:28 AM EDT Hypertension, unspecified type Type 2 diabetes mellitus without complication, without long-term current use of insulin CREATININE WITH ESTIMATED GLOMERULAR FILTRATION RATE (EGFR) Routine 11/25/2024 8:28 AM EDT Hypertension, unspecified type Type 2 diabetes mellitus without complication, without long-term current use of insulin from Last 3 Months or Most Recently Relevant to Health Maintenance Results * (ABNORMAL) Creatinine/eGFR (11/25/2024 8:28 AM EDT) CREATININE 1.50 0.5 - 1.5 mg/dL [facility] EGFR 49(L) >59 mL/min/1.7 3m2 [facility] Comment:Estimated glomerular filtration rate calculated using the CKD-EPI refit equation. Blood 11/25/2024 8:28 AM EDT 11/25/2024 8:31 AM EDT us Tony Roberts MD LAB BLOOD BKR ORDERABLES Fi nal Result [facility] [address] [place] [address] * Potassium (11/25/2024 8:28 AM EDT) POTASSIUM 4.7 3.3 - 5.1 mmol/L [facility] Blood 11/25/2024 8:28 AM EDT 11/25/2024 8:31 AM EDT Tony Roberts MD LAB BLOOD BKR ORDERABLES Fi nal Result [address] [address] * (ABNORMAL) Hemoglobin A1c (11/25/2024 8:28 AM EDT) HEMOGLOBIN A1C 7.7(H) 4.3 - 5.8 % [facility] Blood 11/25/2024 8:28 AM EDT 11/25/2024 8:31 AM EDT Tony Roberts MD LAB BLOOD BKR ORDERABLES Fi nal Result Performing Organization Address City/[facility]/ZIP Co de Phone Number [address] [address] from Last 3 Months or Most Recently Relevant to Health Maintenance [place] [id number] [facility] MEDICARE SUPPLEMENT MEDICARE PART A & B Member Subscriber Plan / Payer ( fective 2018-Present) Name:Kevin Hill Member ID:[id number] Relation to Subscriber:Self Name:Kevin Hill Subscriber ID:[id number] Payer ID:[id number] Group ID:Not on file Type:Medicare Address: [email or web address] [place] [id number] MEDICARE SUPPLEMENT MEDICARE PART A & B [facility] MEDICARE SUPPLEMENT MEDICARE PART A & B [facility] [place] MEDICARE SUPPLEMENT MEDICARE PART A & B MEDICARE SUPPLEMENT MEDICARE PART A & B MEDICARE SUPPLEMENT MEDICARE PART A & B [facility] MEDICARE SUPPLEMENT MEDICARE PART A & B [facility] MEDICARE SUPPLEMENT MEDICARE PART A & B [facility] MEDICARE SUPPLEMENT Care Teams Mailing Jogger Relationship Specialty Start Date End Date Tony Roberts MD [address] [place] [address] [address] PCP - General Internal Medicine 11/05/18 Additional Source Comments The information contained in this document represents components of the legal health record. It is not the complete legal health record.[facility]
--- OUTSIDE RECORDS SUMMARY | 2025-04-27 19:06 | XMS_ITS | Encounter Summary ---
Author Organization [facility] Address [address] [place] [address] Phone Care Team Providers Care Fuller Brush Man Name Role Phone Unknown, Unknown Primary Care Provider Tony Suarez MD Primary Care Provider [phone] Encounter Details Date Type Department Care Team (Late st Contact Info) Description 09/05/2018 Transcribe Orders [address] [address] Tony Roberts MD [address] [place] [address] [place] [address] Hypertension, unspecified type (Primary Dx); High cholesterol; Diabetes mellitus of other type with complication, unspecified whether termite renewal inspector insulin use Social History Tobacco Use Types Packs/Day Years Used Date Smoking Tobacco: Never Assessed Sex and Gender Information Value Date Recorded Sex Assigned at Not on file Legal Sex Male 9:58 PM EDT Gender Identity Not on file Sexual Orientation Not on file documented as of this encounter Plan of Treatment Not on file documented as of this encounter Results * (ABNORMAL) Glucose (09/05/2018 8:58 AM EDT) GLUCOSE 235(H) 70 - 99 mg/dL [facility] Blood 09/05/2018 8:58 AM EDT 09/05/2018 9:03 AM EDT us Tony Roberts MD LAB BLOOD BKR ORDERABLES Fi nal Result Performing Organization Address [facility] de Phone Number [address] [address] * Microalbumin/creatinine ratio, random urine (09/05/2018 8:58 AM EDT) URINE MICROALBUMIN <1.2 0 - 2.3 mg/dL [facility] URINE CREATININE 74 mg/dL BRAIDING MACHINE OPERATOR [facility] MICROALB/CRE RATIO NOT CALCULATED 0 - 20 mg/g Cre [facility] Comment:due to Microalbumin <1.2 Urine (Urine) 09/05/2018 8:5 8 AM EDT 09/05/2018 9:04 AM EDT us Tony Roberts MD LAB URINE ORDERABLES Final Result Performing Organization Address [facility] de Phone Number [address] [address] * (ABNORMAL) Hemoglobin A1c (09/05/2018 8:58 AM EDT) HEMOGLOBIN A1C 8.1(H) 4.3 - 5.8 % [facility] Blood 09/05/2018 8:58 AM EDT 09/05/2018 9:03 AM EDT us Tony Roberts MD LAB BLOOD BKR ORDERABLES Fi nal Result Performing Organization Address [facility] de Phone Number [address] [address] * CPK (creatine kinase) (09/05/2018 8:58 AM EDT) CREATINE KINASE 108 35 - 232 U/L [facility] Blood 09/05/2018 8:58 AM EDT 09/05/2018 9:03 AM EDT us Tony Roberts MD LAB BLOOD BKR ORDERABLES Fi nal Result Performing Organization Address [facility]/ZIP Co de Phone Number [address] [address] * BUN (09/05/2018 8:58 AM EDT) BUN 19 6 - 19 mg/dL [facility] Blood 09/05/2018 8:58 AM EDT 09/05/2018 9:03 AM EDT Tony Roberts MD LAB BLOOD BKR ORDERABLES Fi nal Result [address] [address] * Alanine aminotransferase (ALT) (09/05/2018 8:58 AM EDT) ALT 27 0 - 40 U/L [facility] Blood 09/05/2018 8:58 AM EDT 09/05/2018 9:03 AM EDT us Tony Roberts MD LAB BLOOD BKR ORDERABLES Fi nal Result Performing Organization Address City/[facility]/ZIP Co de Phone Number [address] [address] * (ABNORMAL) Lipid panel (09/05/2018 8:58 AM EDT) HDL 33 mg/dL [facility] Comment: Interpretation <40 mg/dL: Low HDL cholesterol (major risk factor for CHD) Greater than or equal to 60 mg/dL: High HDL cholesterol ( negative risk factor for CHD) HDL - cholesterol is affected by a number of factors, e.g. smoking, excerise, hormones, sex and age. CHOLESTEROL 180 0 - 240 mg/dL [facility] TRIGLYCERIDES 381(H) 30 - 160 mg/dL [facility] LDL 71 50 - 129 mg/dL [facility] Comment: LDL levels in terms of risk for coronary heart disease: <100 mg/dL: Optimal 100-129 mg/dL: Near or above optimal 130-159 mg/dL: Borderline high 160-189 mg/dL: High >190 mg/dL: Very High CARDIAC RISK RATIO 5.5(H) 3.4 - 5.0 C [facility] Blood 09/05/2018 8:58 AM EDT 09/05/2018 9:03 AM EDT Tony Roberts MD LAB BLOOD BKR ORDERABLES Fi nal Result Performing Organization Address City/[facility]/ZIP Co de Phone Number [address] [address] * (ABNORMAL) Electrolytes (09/05/2018 8:58 AM EDT) SODIUM 137 133 - 146 mmol/L [facility] POTASSIUM 5.2(H) 3.3 - 5.1 mmol/L [facility] CHLORIDE 100 96 - 108 mmol/L [facility] CO2 27 21 - 35 mmol/L [facility] ANION GAP 15 10 - 20 mmol/L [facility] Blood 09/05/2018 8:58 AM EDT 09/05/2018 9:03 AM EDT Tony Roberts MD LAB BLOOD BKR ORDERABLES Fi nal Result Performing Organization Address [facility] Co de Phone Number [address] [address] documented in this encounter Visit Diagnoses Diagnosis Hypertension, unspecified type- Primary High cholesterol Pure hypercholesterolemia Diabetes mellitus of other type with complication, unspecified whether jail insulin use documented in this encounter Care Teams Fuller Brush Man Relationship Specialty Start Date End Date Unknown, Unknown, MD PCP - General 05/07/17 11/04/18 Tony Roberts MD [address] [place] [address] [place] [id number] PCP - General Internal Medicine 11/05/18 documented as of this encounter Additional Source Comments The information contained in this document represents components of the legal health record. It is not the complete legal health record.[facility]
--- OUTSIDE RECORDS SUMMARY | 2025-04-27 19:06 | XMS_ITS | Continuity of Care Document ---
Author Organization [facility] Address [address] [place] [address] Phone [phone] Social History Type Date Description Comments Sex Male Sex Unknown Medical Devices Description No Information Available Encounters Description No Information Available Assessments Description No Information Available Plan of Treatment No Information Available Functional Status Description No Information Available Mental Status Description No Information Available Referrals Description No Information Available
--- OUTSIDE RECORDS SUMMARY | 2025-04-27 19:06 | XMS_ITS | Encounter Summary ---
Author Organization [facility] Address [address] [place] [address] Phone Care Team Providers Care Storage Facility Housekeeper Name Role Phone Unknown, Unknown Primary Care Provider Tony Suarez MD Primary Care Provider [phone] Encounter Details Date Type Department Care Team (Late st Contact Info) Description 05/07/2017 Transcribe Orders [facility] [address] [address] Tony Roberts MD [address] [place] [address] [place] [address] Diabetes mellitus of other type with complication, unspecified equipment operator intermodal yard insulin use status (Primary Dx); Hypertension, unspecified type; High cholesterol Social History Tobacco Use Types Packs/Day Years Used Date Smoking Tobacco: Never Assessed Sex and Gender Information Value Date Recorded Sex Assigned at Not on file Legal Sex Male 9:58 PM EDT Gender Identity Not on file Sexual Orientation Not on file documented as of this encounter Plan of Treatment Not on file documented as of this encounter Results * (ABNORMAL) Glucose (05/07/2017 8:00 AM EST) GLUCOSE 160(H) 70 - 99 mg/dL [facility] Blood 05/07/2017 8:00 AM EST 05/07/2017 8:16 AM EST us Tony Roberts MD LAB BLOOD BKR ORDERABLES Fi nal Result [address] [address] * (ABNORMAL) Hemoglobin A1c (05/07/2017 8:00 AM EST) HEMOGLOBIN A1C 7.0(H) 4.3 - 5.8 % [facility] Blood 05/07/2017 8:00 AM EST 05/07/2017 8:16 AM EST us Tony Roberts MD LAB BLOOD BKR ORDERABLES Fi nal Result Performing Organization Address [facility] Co de Phone Number [address] [address] * (ABNORMAL) Lipid panel (05/07/2017 8:00 AM EST) HDL 33 mg/dL [facility] Comment: Interpretation: Risk Level Males Decreased >45 mg/dL Average 40-45 mg/dL Increased <40 mg/dL CHOLESTEROL 194 0 - 240 mg/dL [facility] TRIGLYCERIDES 357(H) 30 - 160 mg/dL [facility] LDL 90 50 - 129 mg/dL [facility] Comment: LDL levels in terms of risk for coronary heart disease: <100 mg/dL: Optimal 100-129 mg/dL: Near or above optimal 130-159 mg/dL: Borderline high 160-189 mg/dL: High >190 mg/dL: Very High CARDIAC RISK RATIO 5.9(H) 3.4 - 5.0 C [facility] Blood 05/07/2017 8:00 AM EST 05/07/2017 8:16 AM EST us Tony Roberts MD LAB BLOOD BKR ORDERABLES Fi nal Result Performing Organization Address City/[facility]/ZIP Co de Phone Number [address] [address] documented in this encounter Visit Diagnoses Diagnosis Diabetes mellitus of other type with complication, unspecified correction insulin use status- Primary Hypertension, unspecified type High cholesterol Pure hypercholesterolemia documented in this encounter Care Teams Storage Facility Housekeeper Relationship Specialty Start Date End Date Unknown, Unknown, MD PCP - General 05/07/17 11/04/18 Tony Roberts MD [address] [place] [address] [place] [id number] PCP - General Internal Medicine 11/05/18 documented as of this encounter Additional Source Comments The information contained in this document represents components of the legal health record. It is not the complete legal health record.[facility]
--- OUTSIDE RECORDS SUMMARY | 2025-04-27 19:06 | XMS_ITS | Encounter Summary ---
Author Organization [facility] Address [address] [place] [address] Phone Care Team Providers Care Hopper Feeder Name Role Phone Tony Roberts MD Primary Care Provider [phone]- [phone] Encounter Details Date Type Department Care Team (Late st Contact Info) Description 04/11/2019 Transcribe Orders [address] [address] Tony Roberts MD [address] [place] [address] [place] [address] Type 2 diabetes mellitus without complication, unspecified whether detention insulin use (Primary Dx); Hypertension, unspecified type [...] EST) CREATININE 1.10 0.5 - 1.5 mg/dL [facility] EGFR 70 >59 mL/min/1.7 3m2 [facility] Comment:If patient is black, multiply result by 1.159. Estimated glomerular filtration rate calculated using the CKD-EPI equation. Blood 04/11/2019 8:04 AM EST 04/11/2019 8:20 AM EST us Tony Roberts MD LAB BLOOD BKR ORDERABLES Fi nal Result Performing Organization Address City/[facility]/ZIP Co de Phone Number [address] [address] * (ABNORMAL) Hemoglobin A1c (04/11/2019 8:04 AM EST) HEMOGLOBIN A1C 7.9(H) 4.3 - 5.8 % [facility] Blood 04/11/2019 8:04 AM EST 04/11/2019 8:20 AM EST us Tony Roberts MD LAB BLOOD BKR ORDERABLES Fi nal Result Performing Organization Address [facility] Co de Phone Number [address] [address] * (ABNORMAL) Glucose (04/11/2019 8:04 AM EST) GLUCOSE 160(H) 70 - 99 mg/dL [facility] Blood 04/11/2019 8:04 AM EST 04/11/2019 8:20 AM EST us Tony Roberts MD LAB BLOOD BKR ORDERABLES Fi nal Result Performing Organization Address [facility] Co de Phone Number [address] [address] * CPK (creatine kinase) (04/11/2019 8:04 AM EST) CREATINE KINASE 145 35 - 232 U/L [facility] Blood 04/11/2019 8:04 AM EST 04/11/2019 8:20 AM EST Tony Roberts MD LAB BLOOD BKR ORDERABLES Fi nal Result Performing Organization Address [facility] Co de Phone Number [address] [address] * (ABNORMAL) BUN (04/11/2019 8:04 AM EST) BUN 21(H) 6 - 19 mg/dL [facility] Blood 04/11/2019 8:04 AM EST 04/11/2019 8:20 AM EST Tony Roberts MD LAB BLOOD BKR ORDERABLES Fi nal Result Performing Organization Address City/[facility]/ZIP Co de Phone Number [address] [address] * Alanine aminotransferase (ALT) (04/11/2019 8:04 AM EST) ALT 24 0 - 40 U/L [facility] Blood 04/11/2019 8:04 AM EST 04/11/2019 8:20 AM EST Tony Roberts MD LAB BLOOD BKR ORDERABLES Fi nal Result Performing Organization Address [facility] Co de Phone Number [address] [address] * Aspartate aminotransferase (AST) (04/11/2019 8:04 AM EST) AST 18 0 - 37 U/L [facility] Blood 04/11/2019 8:04 AM EST 04/11/2019 8:20 AM EST Tony Roberts MD LAB BLOOD BKR ORDERABLES Fi nal Result Performing Organization Address [facility] Co de Phone Number [address] [address] * (ABNORMAL) Electrolytes (04/11/2019 8:04 AM EST) SODIUM 138 133 - 146 mmol/L [facility] POTASSIUM 5.2(H) 3.3 - 5.1 mmol/L [facility] CHLORIDE 100 96 - 108 mmol/L [facility] CO2 27 21 - 35 mmol/L [facility] ANION GAP 16 10 - 20 mmol/L [facility] Blood 04/11/2019 8:04 AM EST 04/11/2019 8:20 AM EST us Tony Roberts MD LAB BLOOD BKR ORDERABLES Fi nal Result [facility] [address] [place] [address] documented in this encounter Visit Diagnoses Diagnosis Type 2 diabetes mellitus without complication, unspecified whether detention insulin use- Primary Hypertension, unspecified type documented in this encounter Care Teams Hopper Feeder Relationship Specialty Start Date End Date Tony Roberts MD [address] [place] [address] [place] [address] PCP - General Internal Medicine 11/05/18 documented as of this encounter Additional Source Comments The information contained in this document represents components of the legal health record. It is not the complete legal health record.[facility]
--- OUTSIDE RECORDS SUMMARY | 2025-04-27 19:06 | XMS_ITS | Encounter Summary ---
Author Organization [facility] Address [address] [place] [address] [place] [phone] Phone Care Team Providers Care Communication Coordinator Name Role Phone Tony Roberts MD Primary Care Provider [phone]- [phone] Encounter Details Date Type Department Care Team (Late st Contact Info) Description 11/05/2018 Ancillary Orders [facility], X-Ray - [address] [address] Tony Roberts MD [address] [place] [address] [place] [address] Cough Social History Tobacco Use Types Packs/Day Years Used Date Smoking Tobacco: Never Assessed Sex and Gender Information Value Date Recorded Sex Assigned at Not on file Legal Sex Male 9:58 PM EDT Gender Identity Not on file Sexual Orientation Not on file documented as of this encounter Plan of Treatment Not on file documented as of this encounter Results * XR CHEST PA AND LATERAL 2 VIEWS (11/05/2018 2:14 PM EDT) Anatomical Region Laterality Modality Chest Radiographic Jolynn ging 11/05/2018 3:27 PM EDT Impressions 11/05/2018 3:27 PM EDT No acute pulmonary process. Clear lungs. POS - [id number] Narrative 11/05/2018 3:27 PM EDT XR CHEST PA AND LATERAL 2 VIEWS HISTORY: COUGH X3 WEEKS TECHNIQUE: PA and lateral views chest. COMPARISON: None. FINDINGS: The cardiomediastinal and hilar silhouettes are normal. The lungs are clear. There is no focal pulmonary consolidation or pleural effusion. Procedure Note Elizabeth West MD - 11/05/2018 XR CHEST PA AND LATERAL 2 VIEWS HISTORY: COUGH X3 WEEKS TECHNIQUE: PA and lateral views chest. COMPARISON: None. FINDINGS: The cardiomediastinal and hilar silhouettes are normal. The lungs areclear. There is no focal pulmonary consolidation or pleural effusion. IMPRESSION: No acute pulmonary process. Clear lungs. POS - [id number] us Tony Roberts MD IMG XR CHEST Final Resul t documented in this encounter Visit Diagnoses Diagnosis Cough Cough documented in this encounter Care Teams Communication Coordinator Relationship Specialty Start Date End Date Tony Roberts MD [address] [place] [address] [place] [address] PCP - General Internal Medicine 11/05/18 documented as of this encounter Additional Source Comments The information contained in this document represents components of the legal health record. It is not the complete legal health record.[facility]
--- OUTSIDE RECORDS SUMMARY | 2025-04-27 19:06 | XMS_ITS | Encounter Summary ---
Author Organization [facility] Address [address] [place] [address] [place] [address] Phone Care Team Providers Care Superintendent Tests Name Role Phone Unknown, Unknown Primary Care Provider Tony Suarez MD Primary Care Provider [phone]- [phone] Encounter Details Date Type Department Care Team (Late st Contact Info) Description 01/21/2018 Transcribe Orders [address] [address] Tony Roberts MD [address] [place] [address] [address] Hypertension, unspecified type (Primary Dx) Social History Tobacco Use Types Packs/Day Years Used Date Smoking Tobacco: Never Assessed Sex and Gender Information Value Date Recorded Sex Assigned at Not on file Legal Sex Male 9:58 PM EDT Gender Identity Not on file Sexual Orientation Not on file documented as of this encounter Plan of Treatment Not on file documented as of this encounter Results * (ABNORMAL) CBC and differential (01/21/2018 12:02 PM EDT) WBC 8.88 3.40 - 11.20 K/uL [facility] RBC 4.95 4.50 - 5.50 M/uL [facility] HGB 15.9 13.0 - 17.0 g/dL [facility] HCT 46.0 40.0 - 51.0 % [facility] PLT 285 130 - 400 K/uL [facility] MCV 92.9 79.0 - 98.0 fL [facility] MCH 32.1 27.0 - 34.8 pg [facility] MCHC 34.6 31.5 - 36.0 g/dL [facility] RDW 11.5 10.8 - 14.6 % [facility] MPV 10.1 9.4 - 12.4 fl [facility] NRBC 0.00 /100 WBCs [facility] ABSOLUTE NRBC 0.00 K/uL [facility] DIFF METHOD Auto [facility] NEUTS 52.0 45.30 - 77.70 % [facility] LYMPHS 37.7 12.30 - 39.70 % [facility] MONOS 7.3 4.10 - 12.80 % [facility] EOS 2.0 0 - 7.2 % [facility] BASOS 0.8 0 - 2.80 % [facility] Granulocytes, immature (%) 0.2 0.0 - 0.9 % [facility] ABSOLUTE NEUTS 4.61 1.40 - 7.70 K/uL [facility] ABSOLUTE LYMPHS 3.35(H) 0.60 - 3.20 K/uL [facility] ABSOLUTE MONOS 0.65(H) 0.11 - 0.59 K/uL [facility] ABSOLUTE EOS 0.18 0.01 - 0.50 K/uL [facility] ABSOLUTE BASOS 0.07 0.00 - 0.08 K/uL [facility] Granulocytes, immature 0.02 0.00 - 0.05 K/uL [facility] Blood 01/21/2018 12:0 2 PM EDT 01/21/2018 12:05 PM EDT us Tony Roberts MD LAB BLOOD BKR ORDERABLES Fi nal Result [facility] [address] [place] [address] * Creatinine/eGFR (01/21/2018 12:02 PM EDT) CREATININE 1.00 0.5 - 1.5 mg/dL [facility] EGFR 79 >59 mL/min/1.7 3m2 [facility] Comment:If patient is black, multiply result by 1.159. Estimated glomerular filtration rate calculated using the CKD-EPI equation. Blood 01/21/2018 12:0 2 PM EDT 01/21/2018 12:05 PM EDT Tony Roberts MD LAB BLOOD BKR ORDERABLES Fi nal Result Performing Organization Address City/[facility]/ZIP Co de Phone Number [address] [address] * BUN (01/21/2018 12:02 PM EDT) BUN 16 6 - 19 mg/dL [facility] Blood 01/21/2018 12:0 2 PM EDT 01/21/2018 12:05 PM EDT Tony Roberts MD LAB BLOOD BKR ORDERABLES Fi nal Result Performing Organization Address [facility] Co de Phone Number [address] [address] * (ABNORMAL) Electrolytes (01/21/2018 12:02 PM EDT) SODIUM 141 133 - 146 mmol/L [facility] POTASSIUM 3.7 3.3 - 5.1 mmol/L [facility] CHLORIDE 98 96 - 108 mmol/L [facility] CO2 21 21 - 35 mmol/L [facility] ANION GAP 26(H) 10 - 20 mmol/L [facility] Blood 01/21/2018 12:0 2 PM EDT 01/21/2018 12:05 PM EDT oTny Roberts MD LAB BLOOD BKR ORDERABLES Fi nal Result Performing Organization Address City/[facility]/ZIP Co de Phone Number [address] [address] documented in this encounter Visit Diagnoses Diagnosis Hypertension, unspecified type- Primary documented in this encounter Care Teams Superintendent Tests Relationship Specialty Start Date End Date Unknown, Unknown, PCP - General 05/07/17 11/04/18 Tony Roberts MD [address] [place] [address] Dr FERMIN, ALEJANDRO [address] PCP - General Internal Medicine 11/05/18 documented as of this encounter Additional Source Comments The information contained in this document represents components of the legal health record. It is not the complete legal health record.[facility]
== END 2025-04-27 15:14 | disposition home or self-care (01) ==
LOC: HO.HOP 14:08
PROVIDERS: PCP Physician Assistant; Visit Provider Psychiatry & Neurology Psychiatry
DX: F98.8 Other specified behavioral and emotional disorders with onset usually occurring in childhood and adolescence (principal); F34.1 Dysthymic disorder; F41.1 Generalized anxiety disorder; R47.89 Other speech disturbances
CPT/HCPCS: 90833; 99213

== ENCOUNTER → 2025-04-27 14:08 | Outpatient (BNVA) | payer MEDICARE, OTHER, SELFPAY | PROVIDERS: PCP Physician Assistant; Visit Provider Psychiatry & Neurology Psychiatry | DX: F98.8 Other specified behavioral and emotional disorders with onset usually occurring in childhood and adolescence (principal); F34.1 Dysthymic disorder; F41.1 Generalized anxiety disorder; R47.89 Other speech disturbances | CPT/HCPCS: 99212 ==